=== PATIENT | male | born 1945 | race Caucasian/White ===

== ENCOUNTER → 2016-10-20 | Outpatient (CLI) | payer BC ==
[~2016-10-20] MED LIST: LEVO25TA PO; PSEU30TA20 PO; [UNRECOGNIZED DRUG - OTHER] PO
== END | disposition home or self-care (01) ==
LOC: C.LAB 15:17
PROVIDERS: ATTEND Physician Assistant
DX: E03.9 Hypothyroidism, unspecified (principal)

== ENCOUNTER → 2017-05-04 | Outpatient (CLI) | payer BC ==
[~2017-05-04] MED LIST changes: -PSEU30TA20 PO
== END | disposition home or self-care (01) ==
LOC: C.LAB 13:44
PROVIDERS: ATTEND Physician Assistant
DX: Z13.29 Encounter for screening for other suspected endocrine disorder (principal)

== ENCOUNTER 2023-12-18 17:33 | Inpatient (IN) ==
--- NOTE | 2023-12-18 18:07 | Emergency Department Note ---
Impression & Plan Generalized weakness, Confusion, Ambulatory dysfunction ED Provider Note HISTORY OF PRESENT ILLNESS: Patient is an 78-year-old male presenting with right rib and right flank pain. Patient reportedly fell 2 weeks ago. Patient has a history of dementia and seems to be a poor historian. reports that the last reported fall was 2 weeks ago. He reportedly has been complaining of some right chest wall pain and right flank pain over the last few days. No dysuria or hematuria. No fevers. No nausea or vomiting. Patient denies any significant cough or shortness of breath. Patient does not take any anticoagulation. Patient denies any fall and reports "it just hurts from all my pushing and pulling." ROS: as above PHYSICAL EXAM: Constitutional: Patient appears in no acute distress. HENT: Head: Normocephalic and atraumatic. Eyes: EOMI, PERRL Mouth/Throat: Mucous membranes moist. Neck: Trachea midline. Neck supple. Cardiovascular: RRR, No murmurs, rubs or gallops. Intact distal pulses. Pulmonary/Chest: No respiratory distress. Breath sounds clear and equal bilaterally. No wheezes or rales. Right lateral chest wall is tender to palpation. No evidence of ecchymosis or flail chest. Abdominal: Abdomen soft, no rebound or guarding. RUQ TTP Musculoskeletal: No edema, tenderness or deformity noted. Skin: Warm and dry. No rash, erythema, pallor or cyanosis Neurological: Alert. CN II-XII grossly intact, moving all extremities equally and fully. MDM: - Vitals signs stable - History obtained via patient and patient's , given his dementia. History as above. - Chronic conditions affecting care: HLD; hypothyroidism; vertigo - Differential diagnoses include, but are not limited to: ACS; pneumonia; rib fracture; pulmonary contusion; hemothorax; cholecystitis; liver laceration - Order placed for continuous cardiac monitoring. At this time, monitor showed rate of 86 bpm with normal sinus rhythm, per my interpretation. - External medical records reviewed. Primary care visit note dated 04/30/2023 was reviewed. Patient follows in their clinic for his routine follow-ups. - EKG interpreted by myself showed normal sinus rhythm. Rate 70 bpm. QT 376. No acute ischemic changes. - Laboratory workup interpreted by myself showed normal WBC; normal PT/INR; stable electrolytes; normal lactate; elevated total bilirubin (1.3); normal liver function tests; normal lipase; normal troponin - UA negative for infection - CT chest/abdomen/pelvis with IV contrast negative for acute pathology, per radiology. Radiology notes bilateral lower lobe atelectasis with trace right pleural effusion versus pleural thickening. Noted to have possible constipation. - CT head wo contrast negative for acute pathology, per radiology - Discussed results with patient and his at bedside. Patient is very confused and seems to be hallucinating. reports that this is apparently his baseline. She reports that he walks at home without any assistive devices but with a shuffling gait, which causes him to fall frequently. - Discussion was had with caseworker protective services about patient's case and need for admission - Hospitalist consulted for admission - Patient admitted to [facility] for further evaluation and management. ASSESSMENT AND PLAN: Diagnosis: Generalized weakness; confusion; ambulatory dysfunction Plan: admit Past Med/Surg History Problem List (Updated 12/18/23 @ 23:35 by Shelley Youssef MD) Ambulatory dysfunction (Acute) Confusion (Acute) Generalized weakness (Acute) Thrombocytopenia Chronic constipation Cognitive impairment Encounter for pre-operative examination Cataracts, bilateral (Chronic) Weight loss (Chronic) Impacted cerumen, left ear (Acute) Left ear pain (Acute) Memory loss (Chronic) Health care maintenance Urine incontinence (Chronic) Fatigue (Chronic) Iron deficiency anemia (Chronic) Constipation (Chronic) Anemia (Chronic) Dermatitis, nummular (Chronic) Hypercholesterolemia (Chronic) Palpitations (Chronic) Tubular adenoma of colon (Chronic) Hypothyroidism (Chronic) History of vertigo (Chronic) Medical History 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 sting Chronic constipation Closed fracture distal radius and ulna Cognitive impairment Degloving injury of left hand Dermatitis, nummular Diverticulitis History of vertigo Hypercholesterolemia Hypothyroidism Multiple open fractures of left hand bones Palpitations Thrombocytopenia Tubular adenoma of colon Surgical History Hx of hand surgery Family History Other Family history non-contributory Social History Smoking Status: Never smoker Preferred Language: Nepali marital status: Current Living Situation: Spouse current occupational status: retired Feels Safe at Home: Yes Allergies Allergies Allergy/AdvReac Type Severity Reaction Status Date / Time gluten Allergy Severe RASH Unverified 05/01/23 14:27 bee venom protein (honey bee) Allergy Intermediate SWELLING Unverified 05/01/23 14:27 caffeine Allergy Intermediate HEART Unverified 05/01/23 14:27 PALPITATION iodine Allergy Unknown Unknown Verified 05/01/23 14:27 magnesium sulfate Allergy Unknown Verified 05/01/23 14:27 latex Allergy Sneezing Verified 05/01/23 14:27 CONTRASTMEDIA Allergy Unknown Unknown Uncoded 05/01/23 14:27 POVIDONE IODINE (Generic Allergy Unknown Y Uncoded 05/01/23 14:27 Allergy) Home Meds Home Medications Medication Instructions Recorded Confirmed sennosides 15 mg tablet (Ex-Lax 15 mg PO QAM 09/23/18 05/01/23 (sennosides)) epinephrine 0.3 mg/0.3 mL 0.3 mg IM ONCE PRN anaphylaxis #1 03/22/19 05/01/23 injection, auto-injector ea pseudoephedrine HCl 30 mg tablet 60 mg PO BID 05/09/22 05/01/23 (Sudafed) Previous Rx's Medication Instructions Recorded levothyroxine 88 mcg tablet See Rx Instructions .Route 09/20/22 .COMPLEX #30 tabs polyethylene glycol 3350 17 17 g PO DAILY PRN constipation 01/19/23 gram/dose oral powder (Miralax) #119 grams Results & Data (ED) Vital Signs Vital Signs - 24 hr 12/18/23 17:43 12/18/23 17:45 12/18/23 17:49 Temperature 36.7 C 36.7 C Temperature Source Oral Oral Pulse Rate 73 74 Pulse Rate [Apical] 71 Pulse Rate from SpO2 Sensor Pulse Rhythm Pulse Strength Normal Respiratory Rate 19 21 Respiratory Effort / Characteristics Non-Labored Spontaneous Non-Labored Spontaneous Respiratory Depth Normal Normal Respiratory Pattern Regular Blood Pressure 146/90 H Blood Pressure [Right Arm] 146/90 H Blood Pressure Mean 108 Blood Pressure Mean [Right Arm] 108 Pulse Oximetry 96 95 Oxygen Delivery Method Room Air Room Air Sepsis Recent Fever Within 48 Hours No Sepsis New/Unexplained Change in Mental Status No Sepsis Action Taken by Nursing No Action Required 12/18/23 18:36 12/18/23 19:16 12/18/23 19:32 Temperature Temperature Source Pulse Rate 78 84 90 Pulse Rate [Apical] Pulse Rate from SpO2 Sensor 72 83 Pulse Rhythm Regular Pulse Strength Respiratory Rate 20 22 Respiratory Effort / Characteristics Respiratory Depth Respiratory Pattern Blood Pressure 140/77 136/36 L Blood Pressure [Right Arm] Blood Pressure Mean 98 69 Blood Pressure Mean [Right Arm] Pulse Oximetry 95 96 92 Oxygen Delivery Method Room Air Room Air Room Air Sepsis Recent Fever Within 48 Hours Sepsis New/Unexplained Change in Mental Status Sepsis Action Taken by Nursing 12/18/23 20:30 12/18/23 21:30 12/18/23 22:01 Temperature Temperature Source Pulse Rate 86 Pulse Rate [Apical] Pulse Rate from SpO2 Sensor 86 73 93 H Pulse Rhythm Pulse Strength Respiratory Rate 21 Respiratory Effort / Characteristics Respiratory Depth Respiratory Pattern Blood Pressure 161/81 H 137/68 154/98 H Blood Pressure [Right Arm] Blood Pressure Mean 107 91 116 Blood Pressure Mean [Right Arm] Pulse Oximetry 96 95 93 Oxygen Delivery Method Room Air Room Air Room Air Sepsis Recent Fever Within 48 Hours Sepsis New/Unexplained Change in Mental Status Sepsis Action Taken by Nursing 12/18/23 22:30 12/18/23 23:00 12/18/23 23:30 Temperature Temperature Source Pulse Rate 91 H 70 Pulse Rate [Apical] Pulse Rate from SpO2 Sensor 80 73 Pulse Rhythm Pulse Strength Respiratory Rate 20 19 Respiratory Effort / Characteristics Respiratory Depth Respiratory Pattern Blood Pressure 157/74 H 168/91 H Blood Pressure [Right Arm] Blood Pressure Mean 101 116 Blood Pressure Mean [Right Arm] Pulse Oximetry 93 96 96 Oxygen Delivery Method Room Air Sepsis Recent Fever Within 48 Hours Sepsis New/Unexplained Change in Mental Status Sepsis Action Taken by Nursing Laboratory Data 12/18/23 18:36 12/18/23 18:36 Lab Results 12/18/23 12/18/23 12/18/23 Range/Units 18:36 19:40 Unknown WBC 8.27 (4.8-10.8) K/ul RBC 4.11 L (4.70-6.10) M/uL Hgb 13.1 L (14.0-18.0) g/dl Hct 39.5 L (42.0-52.0) % MCV 96.1 (80.0-100.0) fL MCH 31.9 (25.0-34.0) pg MCHC 33.2 (32.0-36.0) g/dL RDW Std Deviation 46.0 (36.4-46.3) fL RDW Coeff of Jennifer 13.1 (11.5-14.5) % Plt Count 148 (130-400) K/uL MPV 11.0 (9.4-12.4) fL Immature Gran % (Auto) 0.1 % Neut % (Auto) 70.8 % Lymph % (Auto) 16.4 % [place] % (Auto) 11.7 % Eos % (Auto) 0.6 % Baso % (Auto) 0.4 % Neut # (Auto) 5.85 (1.40-6.50) K/uL Lymph # (Auto) 1.36 (1.20-3.40) K/uL [place] # (Auto) 0.97 H (0.11-0.59) K/uL Eos # (Auto) 0.05 (0.00-0.50) K/uL Baso # (Auto) 0.03 (0.00-0.20) K/uL Immature Gran # (Auto) 0.01 (0.01-0.20) K/uL PT 10.8 (9.0-12.0) Seconds INR 1.0 (0.9-1.1) Sodium 137 (136-145) mmol/L Potassium 4.2 (3.5-5.1) mmol/L Chloride 104 (98-107) mmol/L Carbon Dioxide 28 (21-32) mmol/L Anion Gap 5 (3-11) BUN 14 (6-23) mg/dl Creatinine 0.90 (0.6-1.4) mg/dl Est Cr Clr Drug Dosing 67.6 ml/min Est GFR ( Amer) 93.2 ml/min Est GFR (Non-Af Amer) 80.4 ml/min BUN/Creatinine Ratio 15.6 (10-20) Glucose 110 H (70-99(Fasting)) mg/dl Lactate 0.8 (0.4-2.0) mmol/L Calcium 9.1 (8.6-10.3) mg/dl Total Bilirubin 1.3 H (0.2-1.0) mg/dl AST 30 (13-39) U/L ALT 21 (7-52) U/L Alkaline Phosphatase 102 (34-104) U/L Troponin I High Sens 3.6 (0-20) pg/ml Total Protein 6.8 (6.0-8.3) gm/dl Albumin 3.8 (3.4-5.0) gm/dl Globulin 3.0 (2.5-4.0) gm/dl Albumin/Globulin Ratio 1.3 (0.9-2) Lipase 39 (11-82) U/L Urine Color Dark Yellow Urine Appearance Clear (Clear) Urine pH 6.0 (4.5-7.5) Ur Specific [place] 1.022 (1.000-1.030) Urine Protein Trace H (Negative) Urine Glucose (UA) Negative (Negative) Urine Ketones Negative (Negative) Urine Blood Negative (Negative) Urine Nitrite Negative (Negative) Urine Bilirubin Negative (Negative) Urine Urobilinogen Negative (Negative) Ur Leukocyte Esterase Negative (Negative) Urine WBC (Auto) 0-5 (0-5) /hpf Urine RBC (Auto) 0-2 (0-2) /hpf U Hyaline Cast (Auto) 0-2 (0-2) /lpf U Epithel Cells (Auto) 0-2 (0-2) /hpf Urine Bacteria (Auto) None Seen (None Seen) Administered Medications Discontinued Medications Diphenhydramine HCl (Diphenhydramine 50 Mg/Ml Vial) 25 mg IV ONE ONE Stop: 12/18/23 18:08 Last Admin: 12/18/23 18:36 Dose: 25 mg Documented By: JERROD Ioversol (Optiray 320 100ml) 89 ml IV ONCE ONE Stop: 12/18/23 20:15 Last Admin: 12/18/23 20:16 Dose: 89 ml Documented By: YESSICA Methylprednisolone (Methylprednisolone 125 Mg/2 Ml Vial) 40 mg IV NOW ONE Stop: 12/18/23 18:08 Last Admin: 12/18/23 18:37 Dose: 40 mg Documented By: JERROD Imaging Data Radiologist's Impression: Chest CT 12/18/23 18:07 Exam(s): CT CHEST With Contrast IV Amt: 89ml optiray 320 EXAM: CT Chest With Intravenous Contrast CLINICAL HISTORY: Reason for exam: R chest pain s/p fall. TECHNIQUE: Axial computed tomography images of the chest with intravenous contrast. CTDI is 34.09 mGy and DLP is 1490.73 mGy-cm. Automated exposure control was utilized for the study. A dose lowering technique was utilized adhering to the principles of ALARA. CONTRAST: Patient received 89ml optiray 320 of IV contrast COMPARISON: None. FINDINGS: Limitations: Exam is limited due to motion/breathing artifact. Lungs: Mild bilateral lower lobe atelectasis, right slightly more so compared to left. Remainder of the lung parenchyma is clear. No mass. Pleural space: Trace right-sided pleural effusion versus pleural thickening. No pneumothorax. Heart: Unremarkable. No cardiomegaly. No significant pericardial effusion. Normal cardiac size with coronary artery calcifications . Bones/joints: Diffuse osteopenia with multilevel degenerative disease of the spine and bilateral shoulders. Limited visualization of the ribs due to motion artifact with no distinct fracture seen. No dislocation. Soft tissues: Unremarkable. Vasculature: Mild atherosclerotic disease of aorta with no aneurysm or dissection. Normal enhancement of the pulmonary arteries for the phase of contrast injection. Lymph nodes: Unremarkable. No enlarged lymph nodes. Other findings: Visualized upper abdominal structures unremarkable. IMPRESSION: 1. Bilateral lower lobe atelectasis with trace right-sided pleural effusion versus pleural thickening. 2. No pneumothorax. 3. No distinct fracture or subluxation seen. Electronically signed by: July Nation MD 12/18/23 21:06 PM Abdomen/Pelvis CT 12/18/23 18:08 Exam(s): CT ABDOMEN + PELVIS With Contrast IV Amt: 89ml optiray 320 EXAM: CT Abdomen and Pelvis With Intravenous Contrast CLINICAL HISTORY: Reason for exam: R flank pain s/p fall. TECHNIQUE: Axial computed tomography images of the abdomen and pelvis with intravenous contrast. CTDI is 34.09 mGy and DLP is 1490.73 mGy-cm. Automated exposure control was utilized for the study. A dose lowering technique was utilized adhering to the principles of ALARA. CONTRAST: Patient received 89ml optiray 320 of IV contrast COMPARISON: 02/27/2020. FINDINGS: Lung bases: Bilateral lower lobe dependent atelectasis, right more than left with groundglass opacities, cannot exclude superimposed pneumonitis. ABDOMEN: Liver: Unremarkable. No mass. Gallbladder and bile ducts: Unremarkable. No calcified stones. No ductal dilation. Pancreas: Unremarkable. No mass. No ductal dilation. Spleen: Unremarkable. No splenomegaly. Adrenals: Unremarkable. No mass. Kidneys and ureters: Multiple low-attenuation structures within the right kidney, largest seen in the upper pole measuring 2.3 cm compatible with simple cysts. No further follow-up imaging recommended. Otherwise normal right kidney. Normal left kidney. Stomach and bowel: Increased fecal debris within the colon suggestive of constipation. No obstruction. No mucosal thickening. PELVIS: Appendix: No findings to suggest acute appendicitis. Bladder: Multiple stones/calculi along the posterior aspect of the urinary bladder, largest averaging approximately 6 mm. Reproductive: Severe prostate enlargement. ABDOMEN and PELVIS: Intraperitoneal space: Unremarkable. No free air. No significant fluid collection. Bones/joints: Diffuse osteopenia with degenerative disease of the spine, more severe to L5-S1 with vacuum phenomenon at this level. Mild degenerative disease of bilateral hips. Degenerative disease of bilateral SI joints. No acute fracture. No dislocation. Soft tissues: Unremarkable. Vasculature: Mild atherosclerotic disease of aorta with no aneurysm. Mild atherosclerotic disease of aorta with no aneurysm or dissection. Lymph nodes: Unremarkable. No enlarged lymph nodes. IMPRESSION: 1. Possible constipation. No bowel obstruction or focal inflammatory process or other gastrointestinal tract. 2. Prostate enlargement/hypertrophy with multiple urinary bladder calculi largest averaging approximately 6 mm. 3. Simple cysts within the right kidney as described above. Otherwise unremarkable abdominal viscera. Electronically signed by: July Nation MD 12/18/23 21:[address] 12/18/23 22:59 Exam(s): CT HEAD Without Contrast EXAM: CT Head Without Intravenous Contrast CLINICAL HISTORY: Reason for exam: confusion. TECHNIQUE: Axial computed tomography images of the head/brain without intravenous contrast. CTDI is 75.45 mGy and DLP is 1016.05 mGy-cm. Automated exposure control was utilized for the study. A dose lowering technique was utilized adhering to the principles of ALARA. COMPARISON: None. FINDINGS: Brain: Mild to moderate generalized brain atrophy. Decreased attenuation within the deep white matter suggestive of microangiopathic disease. No hemorrhage. Ventricles: Nonspecific bilateral ventriculomegaly. Bones/joints: Unremarkable. No acute fracture. Soft tissues: Unremarkable. Vasculature: Contrast identified within the vascular structures from previous IV contrast-enhanced examination limits the sensitivity for small amount of extra-axial hemorrhage. Sinuses: Unremarkable as visualized. No acute sinusitis. Mastoid air cells: Unremarkable as visualized. No mastoid effusion. IMPRESSION: 1. Chronic changes as described with no distinct intracranial hemorrhage within the limits of the exam described. 2. No intracranial space-occupying lesion. Electronically signed by: July Nation MD 12/19/23 00:08 AM Discharge Plan Visit Data Chief Complaint: Back Injury/Pain ED Provider: Shelley Youssef Discharge Problem: Generalized weakness, Confusion, Ambulatory dysfunction Forms Stand Alone Forms: [facility] [employer] Prescriptions Prescriptions: No Action levothyroxine 88 mcg tablet See Rx Instructions .ROUTE .COMPLEX Qty: 30 0RF Hold Instructions: PATIENT NOT TAKING - REFUSES Dose Instruction: take 1 tablet by mouth once daily Rx Instructions: take 1 tablet by mouth once daily epinephrine 0.3 mg/0.3 mL auto-injector 0.3 mg IM ONCE PRN (Reason: anaphylaxis) Qty: 1 pseudoephedrine HCl [Sudafed] 30 mg tablet 60 mg PO BID polyethylene glycol 3350 [Miralax] 17 gram/dose powder 17 g PO DAILY PRN (Reason: constipation) Qty: 119 0RF Ex-Lax (sennosides) 15 mg Tablet 15 mg PO QAM Referrals Referrals: Aurea Kaye MD [Primary Care Provider] -
[2023-12-18] MEDS: diphenhydrAMINE 50 MG/ML VIAL IV ONE (18:36)
[2023-12-18] MEDS: methylPREDNISolone 125 MG/2 ML VIAL IV ONE (18:37)
[2023-12-18 18:57] LABS: Appearance Urine Clear (Clear); Bacteria Urine Automated None Seen (None Seen); Bilirubin Urine Negative (Negative); Blood Urine Negative (Negative); Cast Urine Automated 0-2 /lpf (0-2); Color Urine Dark Yellow; Epithelial Cell Urine Auto 0-2 /hpf (0-2); Glucose Urine UA Negative (Negative); Ketones Urine Negative (Negative); Leukocyte Esterase Urine Negative (Negative); Nitrite Urine Negative (Negative); Protein Urine Trace (Negative); RBC Urine Automated 0-2 /hpf (0-2); Specific Gravity Urine 1.022 (1.000-1.030); Urobilinogen Urine Negative (Negative); WBC Urine Automated 0-5 /hpf (0-5)
[2023-12-18 19:01] LABS: Basophils # (auto) 0.03 K/uL (0.00-0.20); Basophils % (auto) 0.4 %; Eosinophils # (auto) 0.05 K/uL (0.00-0.50); Eosinophils % (auto) 0.6 %; Hematocrit (blood only) 39.5 % (42.0-52.0); Hemoglobin 13.1 g/dl (14.0-18.0); Immature Granulocytes # (auto) 0.01 K/uL (0.01-0.20); Immature Granulocytes % (auto) 0.1 %; Lymphocytes # (auto) 1.36 K/uL (1.20-3.40); Lymphocytes % (auto) 16.4 %; Mean Corpuscular Hemoglobin 31.9 pg (25.0-34.0); Mean Corpuscular Hgb Conc 33.2 g/dL (32.0-36.0); Mean Corpuscular Volume 96.1 fL (80.0-100.0); Monocytes # (auto) 0.97 K/uL (0.11-0.59); Monocytes % (auto) 11.7 %; Neutrophils # (auto) 5.85 K/uL (1.40-6.50); Neutrophils % (auto) 70.8 %; Platelet Count 148 K/uL (130-400); RDW Coefficient of Variation 13.1 % (11.5-14.5); Red Blood Count 4.11 M/uL (4.70-6.10); White Blood Count 8.27 K/ul (4.8-10.8)
[2023-12-18 19:20] LABS: Albumin Globulin Ratio 1.3 (0.9-2); Albumin Level 3.8 gm/dl (3.4-5.0); BUN Creatinine Ratio 15.6 (10-20); Bilirubin,Total 1.3 mg/dl (0.2-1.0); Calcium 9.1 mg/dl (8.6-10.3); Creatinine Clr Calc Pharmacy 67.6 ml/min; Est GFR (African American) 93.2 ml/min; Est GFR (Non-African American) 80.4 ml/min; Potassium 4.2 mmol/L (3.5-5.1); Total Protein 6.8 gm/dl (6.0-8.3)
[2023-12-18 19:27] LABS: Troponin I High Sensitivity 3.6 pg/ml (0-20)
[2023-12-18 19:28] LABS: Prothrombin Time 10.8 Seconds (9.0-12.0)
[2023-12-18] MEDS: OPTIRAY 320 100ml IV ONE (20:16)
--- NOTE | 2023-12-18 21:07 | CT Scan Report ---
Exam(s): CT CHEST With Contrast IV Amt: 89ml optiray 320 EXAM: CT Chest With Intravenous Contrast CLINICAL HISTORY: Reason for exam: R chest pain s/p fall. TECHNIQUE: Axial computed tomography images of the chest with intravenous contrast. CTDI is 34.09 mGy and DLP is 1490.73 mGy-cm. Automated exposure control was utilized for the study. A dose lowering technique was utilized adhering to the principles of ALARA. CONTRAST: Patient received 89ml optiray 320 of IV contrast COMPARISON: None. FINDINGS: Limitations: Exam is limited due to motion/breathing artifact. Lungs: Mild bilateral lower lobe atelectasis, right slightly more so compared to left. Remainder of the lung parenchyma is clear. No mass. Pleural space: Trace right-sided pleural effusion versus pleural thickening. No pneumothorax. Heart: Unremarkable. No cardiomegaly. No significant pericardial effusion. Normal cardiac size with coronary artery calcifications . Bones/joints: Diffuse osteopenia with multilevel degenerative disease of the spine and bilateral shoulders. Limited visualization of the ribs due to motion artifact with no distinct fracture seen. No dislocation. Soft tissues: Unremarkable. Vasculature: Mild atherosclerotic disease of aorta with no aneurysm or dissection. Normal enhancement of the pulmonary arteries for the phase of contrast injection. Lymph nodes: Unremarkable. No enlarged lymph nodes. Other findings: Visualized upper abdominal structures unremarkable. IMPRESSION: 1. Bilateral lower lobe atelectasis with trace right-sided pleural effusion versus pleural thickening. 2. No pneumothorax. 3. No distinct fracture or subluxation seen. Electronically signed by: July Nation MD 12/18/23 21:06 PM
--- NOTE | 2023-12-18 21:11 | CT Scan Report ---
Exam(s): CT ABDOMEN + PELVIS With Contrast IV Amt: 89ml optiray 320 EXAM: CT Abdomen and Pelvis With Intravenous Contrast CLINICAL HISTORY: Reason for exam: R flank pain s/p fall. TECHNIQUE: Axial computed tomography images of the abdomen and pelvis with intravenous contrast. CTDI is 34.09 mGy and DLP is 1490.73 mGy-cm. Automated exposure control was utilized for the study. A dose lowering technique was utilized adhering to the principles of ALARA. CONTRAST: Patient received 89ml optiray 320 of IV contrast COMPARISON: 02/27/2020. FINDINGS: Lung bases: Bilateral lower lobe dependent atelectasis, right more than left with groundglass opacities, cannot exclude superimposed pneumonitis. ABDOMEN: Liver: Unremarkable. No mass. Gallbladder and bile ducts: Unremarkable. No calcified stones. No ductal dilation. Pancreas: Unremarkable. No mass. No ductal dilation. Spleen: Unremarkable. No splenomegaly. Adrenals: Unremarkable. No mass. Kidneys and ureters: Multiple low-attenuation structures within the right kidney, largest seen in the upper pole measuring 2.3 cm compatible with simple cysts. No further follow-up imaging recommended. Otherwise normal right kidney. Normal left kidney. Stomach and bowel: Increased fecal debris within the colon suggestive of constipation. No obstruction. No mucosal thickening. PELVIS: Appendix: No findings to suggest acute appendicitis. Bladder: Multiple stones/calculi along the posterior aspect of the urinary bladder, largest averaging approximately 6 mm. Reproductive: Severe prostate enlargement. ABDOMEN and PELVIS: Intraperitoneal space: Unremarkable. No free air. No significant fluid collection. Bones/joints: Diffuse osteopenia with degenerative disease of the spine, more severe to L5-S1 with vacuum phenomenon at this level. Mild degenerative disease of bilateral hips. Degenerative disease of bilateral SI joints. No acute fracture. No dislocation. Soft tissues: Unremarkable. Vasculature: Mild atherosclerotic disease of aorta with no aneurysm. Mild atherosclerotic disease of aorta with no aneurysm or dissection. Lymph nodes: Unremarkable. No enlarged lymph nodes. IMPRESSION: 1. Possible constipation. No bowel obstruction or focal inflammatory process or other gastrointestinal tract. 2. Prostate enlargement/hypertrophy with multiple urinary bladder calculi largest averaging approximately 6 mm. 3. Simple cysts within the right kidney as described above. Otherwise unremarkable abdominal viscera. Electronically signed by: July Nation MD 12/18/23 21:10 PM
--- NOTE | 2023-12-18 23:45 | History & Physical Report ---
Date of Service December 18, 2023 Assessment & Plan (1) Confusion: Plan: 78yo male with dementia presenting with worsening confusion and behavioral disturbance over the last 2 weeks. Acute worsening in the ER. Suspect progression of dementia, possible delirium currently. Etiology unclear. Labs are largely unremarkable, no evidence of infection -Admit to medical -Check ammonia, B12 and Folate -Frequent orientation, maintenance of sleep/wake cycle where able -One to one observation as needed -PT/OT evaluation -Case management evaluation Family reports that their goal discharge plan is that patient returns home with some home nursing and health aides (2) Constipation: Plan: Family notes chronic constipation -Colace and Miralax PRN Plan Vertigo - chronic -Continue Pseudoephedrine BID History of Present Illness Chief Complaint: confusion Primary Care Provider: Aurea Kaye MD Hoang Saavedra is an 78yo male with history of Dementia presenting with confusion. Patient is uncertain why he is here in the hospital. He has no acute complaints. He is quite confused during our encounter - reports that he has to "deal with the [employer] team that uses different weights and shovels" Additional information obtained from patient's and son (Citlali Saavedra - [phone]). and son report that patient has had a steady decline in cognitive function and memory over the last year. 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 He has wandered out of the home in the past as well. The family has placed bells on the doors to notify them if he leaves the house. Patient reported falling during the night two weeks ago but was able to get up afterwards - no injury. is unaware of any other falls since then. His reports some increased confusion over the last two weeks. He has been urinating throughout the home - in the trash cans, on the floor, etc. He has also been refusing to wear underwear and pants. Today patient was sitting in the garage on a lawn chair without pants or underwear on. He then started to wander around the yard and wouldn't listen to his . He was complaining about a pain in his side and wouldn't get out of his chair. EMS was called and he was brought to the ER. notes some acutely worsening confusion in the ER. He was pulling at his IV lines and wasn't answering questions appropriately. In the ER he is afebrile, HD stable Confusion ER Course: Haldol 2.5mg IV Allergies Allergy/AdvReac Type Severity Reaction Status Date / Time gluten Allergy Severe RASH Unverified 05/01/23 14:27 bee venom protein (honey bee) Allergy Intermediate SWELLING Unverified 05/01/23 14:27 caffeine Allergy Intermediate HEART Unverified 05/01/23 14:27 PALPITATION iodine Allergy Unknown Unknown Verified 05/01/23 14:27 magnesium sulfate Allergy Unknown Verified 05/01/23 14:27 latex Allergy Sneezing Verified 05/01/23 14:27 CONTRASTMEDIA Allergy Unknown Unknown Uncoded 05/01/23 14:27 POVIDONE IODINE (Generic Allergy Unknown Y Uncoded 05/01/23 14:27 Allergy) Home Medications Medication Instructions Recorded Confirmed Type sennosides 15 mg tablet (Ex-Lax 15 mg PO QAM 09/23/18 05/01/23 History (sennosides)) epinephrine 0.3 mg/0.3 mL 0.3 mg IM ONCE PRN anaphylaxis #1 03/22/19 05/01/23 History injection, auto-injector ea pseudoephedrine HCl 30 mg tablet 60 mg PO BID 05/09/22 05/01/23 History (Sudafed) levothyroxine 88 mcg tablet See Rx Instructions .Route 09/20/22 05/01/23 Rx .COMPLEX #30 tabs polyethylene glycol 3350 17 17 g PO DAILY PRN constipation 01/19/23 05/01/23 Rx gram/dose oral powder (Miralax) #119 grams Past Med/Surg History Problem List Ambulatory dysfunction (Acute) Confusion (Acute) Generalized weakness (Acute) Thrombocytopenia Chronic constipation Cognitive impairment Encounter for pre-operative examination Cataracts, bilateral (Chronic) Weight loss (Chronic) Impacted cerumen, left ear (Acute) Left ear pain (Acute) Memory loss (Chronic) Health care maintenance Urine incontinence (Chronic) Fatigue (Chronic) Iron deficiency anemia (Chronic) Constipation (Chronic) Anemia (Chronic) Dermatitis, nummular (Chronic) Hypercholesterolemia (Chronic) Palpitations (Chronic) Tubular adenoma of colon (Chronic) Hypothyroidism (Chronic) History of vertigo (Chronic) Medical History 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 sting Degloving injury of left hand Multiple open fractures of left hand bones Closed fracture distal radius and ulna Surgical History Hx of hand surgery 2016, left hand Family History Other Family history non-contributory Social History Smoking Status: Unknown if ever smoked Second Hand Exposure: No (unknown, unable to answer); Do You Dip or Chew Tobacco: No (unknown, unable to answer); Tobacco Cessation Education Requested by Patient: No Hx Alcohol Use: No (unknown, unable to answer) Hx Substance Use: No (unknown, unable to answer) Preferred Language: Portuguese Communication Ability: Effective Supervisor Print Line Required: No Beliefs That Will Affect Care: None marital status: Current Living Situation: Spouse current occupational status: retired Other Information That Helps Us Care for You: No (unknown, unable to answer) Feels Safe at Home: Yes Assistive Devices Comment: unknown, unable to answer Review of Systems Review of Systems: All systems reviewed & are unremarkable except as noted in HPI & below Physical Exam Physical Exam: General: frail elderly male patient, oriented to self Skin: warm, dry, intact, no rashes or lesions HEENT: NC/AT, PERRL, EOMI, anicteric sclera, conjunctiva without injection, external ear normal to inspection and nontender, nares patent, moist mucus membranes, dentition intact, no oropharyngeal lesions, neck supple, trachea midline, no LAD, no thyromegaly, no JVD Heart: +S1/S2, regular, no m/r/g Lungs: equal air entry bilaterally, no rales/rhonchi/wheezes Abd: +BS, soft, NT/ND, no masses/organomegaly/ascites Ext: warm, 2+ pulses in UE/LE bilaterally, no clubbing/cyanosis or edema, farm ing accident involving left hand Neuro: confused, answers questions, inattentive, oriented to self Results & Data Results & Data Vital Signs (Past 12 Hours) Vital Signs Temp Pulse Pulse Resp BP BP Pulse Ox 12/18/23 22:30 157/74 H 93 12/18/23 22:01 154/98 H 93 12/18/23 21:30 137/68 95 12/18/23 20:30 86 21 161/81 H 96 12/18/23 19:32 90 22 136/36 L 92 12/18/23 19:16 84 20 140/77 96 12/18/23 18:36 78 95 12/18/23 17:49 36.7 C 71 21 146/90 H 95 12/18/23 17:45 74 12/18/23 17:43 36.7 C 73 19 146/90 H 96 O2 Del Method 12/18/23 22:30 Room Air 12/18/23 22:01 Room Air 12/18/23 21:30 Room Air 12/18/23 20:30 Room Air 12/18/23 19:32 Room Air 12/18/23 19:16 Room Air 12/18/23 18:36 Room Air 12/18/23 17:49 Room Air 12/18/23 17:45 12/18/23 17:43 Room Air Laboratory Results Laboratory Results WBC 8.27 K/ul (4.8-10.8) 12/18/23 18:36 RBC 4.11 M/uL (4.70-6.10) L 12/18/23 18:36 Hgb 13.1 g/dl (14.0-18.0) L 12/18/23 18:36 Hct 39.5 % (42.0-52.0) L 12/18/23 18:36 MCV 96.1 fL (80.0-100.0) 12/18/23 18:36 MCH 31.9 pg (25.0-34.0) 12/18/23 18:36 MCHC 33.2 g/dL (32.0-36.0) 12/18/23 18:36 RDW Std Deviation 46.0 fL (36.4-46.3) 12/18/23 18:36 RDW Coeff of Jennifer 13.1 % (11.5-14.5) 12/18/23 18:36 Plt Count 148 K/uL (130-400) 12/18/23 18:36 MPV 11.0 fL (9.4-12.4) 12/18/23 18:36 Immature Gran % (Auto) 0.1 % 12/18/23 18:36 Neut % (Auto) 70.8 % 12/18/23 18:36 Lymph % (Auto) 16.4 % 12/18/23 18:36 [place] % (Auto) 11.7 % 12/18/23 18:36 Eos % (Auto) 0.6 % 12/18/23 18:36 Baso % (Auto) 0.4 % 12/18/23 18:36 Neut # (Auto) 5.85 K/uL (1.40-6.50) 12/18/23 18:36 Lymph # (Auto) 1.36 K/uL (1.20-3.40) 12/18/23 18:36 [place] # (Auto) 0.97 K/uL (0.11-0.59) H 12/18/23 18:36 Eos # (Auto) 0.05 K/uL (0.00-0.50) 12/18/23 18:36 Baso # (Auto) 0.03 K/uL (0.00-0.20) 12/18/23 18:36 Immature Gran # (Auto) 0.01 K/uL (0.01-0.20) 12/18/23 18:36 PT 10.8 Seconds (9.0-12.0) 12/18/23 18:36 INR 1.0 (0.9-1.1) 12/18/23 18:36 Sodium 137 mmol/L (136-145) 12/18/23 18:36 Potassium 4.2 mmol/L (3.5-5.1) 12/18/23 18:36 Chloride 104 mmol/L (98-107) 12/18/23 18:36 Carbon Dioxide 28 mmol/L (21-32) 12/18/23 18:36 Anion Gap 5 (3-11) 12/18/23 18:36 BUN 14 mg/dl (6-23) 12/18/23 18:36 Creatinine 0.90 mg/dl (0.6-1.4) 12/18/23 18:36 Est Cr Clr Drug Dosing 67.6 ml/min 12/18/23 18:36 Est GFR ( Amer) 93.2 ml/min 12/18/23 18:36 Est GFR (Non-Af Amer) 80.4 ml/min 12/18/23 18:36 BUN/Creatinine Ratio 15.6 (10-20) 12/18/23 18:36 Glucose 110 mg/dl (70-99(Fasting)) H 12/18/23 18:36 Lactate 0.8 mmol/L (0.4-2.0) 12/18/23 19:40 Calcium 9.1 mg/dl (8.6-10.3) 12/18/23 18:36 Phosphorus 2.9 mg/dl (2.5-4.9) 12/18/23 18:36 Magnesium 2.1 mg/dl (1.7-2.4) 12/18/23 18:36 Total Bilirubin 1.3 mg/dl (0.2-1.0) H 12/18/23 18:36 AST 30 U/L (13-39) 12/18/23 18:36 ALT 21 U/L (7-52) 12/18/23 18:36 Alkaline Phosphatase 102 U/L (34-104) 12/18/23 18:36 Troponin I High Sens 3.6 pg/ml (0-20) 12/18/23 18:36 Total Protein 6.8 gm/dl (6.0-8.3) 12/18/23 18:36 Albumin 3.8 gm/dl (3.4-5.0) 12/18/23 18:36 Globulin 3.0 gm/dl (2.5-4.0) 12/18/23 18:36 Albumin/Globulin Ratio 1.3 (0.9-2) 12/18/23 18:36 Lipase 39 U/L (11-82) 12/18/23 18:36 Urine Color Dark Yellow 12/18/23 Unknown Urine Appearance Clear (Clear) 12/18/23 Unknown Urine pH 6.0 (4.5-7.5) 12/18/23 Unknown Ur Specific [place] 1.022 (1.000-1.030) 12/18/23 Unknown Urine Protein Trace (Negative) H 12/18/23 Unknown Urine Glucose (UA) Negative (Negative) 12/18/23 Unknown Urine Ketones Negative (Negative) 12/18/23 Unknown Urine Blood Negative (Negative) 12/18/23 Unknown Urine Nitrite Negative (Negative) 12/18/23 Unknown Urine Bilirubin Negative (Negative) 12/18/23 Unknown Urine Urobilinogen Negative (Negative) 12/18/23 Unknown Ur Leukocyte Esterase Negative (Negative) 12/18/23 Unknown Urine WBC (Auto) 0-5 /hpf (0-5) 12/18/23 Unknown Urine RBC (Auto) 0-2 /hpf (0-2) 12/18/23 Unknown U Hyaline Cast (Auto) 0-2 /lpf (0-2) 12/18/23 Unknown U Epithel Cells (Auto) 0-2 /hpf (0-2) 12/18/23 Unknown Urine Bacteria (Auto) None Seen (None Seen) 12/18/[address] 12/18/23 18:07 Exam(s): CT CHEST With Contrast IV Amt: 89ml optiray 320 EXAM: CT Chest With Intravenous Contrast CLINICAL HISTORY: Reason for exam: R chest pain s/p fall. TECHNIQUE: Axial computed tomography images of the chest with intravenous contrast. CTDI is 34.09 mGy and DLP is 1490.73 mGy-cm. Automated exposure control was utilized for the study. A dose lowering technique was utilized adhering to the principles of ALARA. CONTRAST: Patient received 89ml optiray 320 of IV contrast COMPARISON: None. FINDINGS: Limitations: Exam is limited due to motion/breathing artifact. Lungs: Mild bilateral lower lobe atelectasis, right slightly more so compared to left. Remainder of the lung parenchyma is clear. No mass. Pleural space: Trace right-sided pleural effusion versus pleural thickening. No pneumothorax. Heart: Unremarkable. No cardiomegaly. No significant pericardial effusion. Normal cardiac size with coronary artery calcifications . Bones/joints: Diffuse osteopenia with multilevel degenerative disease of the spine and bilateral shoulders. Limited visualization of the ribs due to motion artifact with no distinct fracture seen. No dislocation. Soft tissues: Unremarkable. Vasculature: Mild atherosclerotic disease of aorta with no aneurysm or dissection. Normal enhancement of the pulmonary arteries for the phase of contrast injection. Lymph nodes: Unremarkable. No enlarged lymph nodes. Other findings: Visualized upper abdominal structures unremarkable. IMPRESSION: 1. Bilateral lower lobe atelectasis with trace right-sided pleural effusion versus pleural thickening. 2. No pneumothorax. 3. No distinct fracture or subluxation seen. Electronically signed by: July Nation MD 12/18/23 21:06 PM Abdomen/Pelvis CT 12/18/23 18:08 Exam(s): CT ABDOMEN + PELVIS With Contrast IV Amt: 89ml optiray 320 EXAM: CT Abdomen and Pelvis With Intravenous Contrast CLINICAL HISTORY: Reason for exam: R flank pain s/p fall. TECHNIQUE: Axial computed tomography images of the abdomen and pelvis with intravenous contrast. CTDI is 34.09 mGy and DLP is 1490.73 mGy-cm. Automated exposure control was utilized for the study. A dose lowering technique was utilized adhering to the principles of ALARA. CONTRAST: Patient received 89ml optiray 320 of IV contrast COMPARISON: 02/27/2020. FINDINGS: Lung bases: Bilateral lower lobe dependent atelectasis, right more than left with groundglass opacities, cannot exclude superimposed pneumonitis. ABDOMEN: Liver: Unremarkable. No mass. Gallbladder and bile ducts: Unremarkable. No calcified stones. No ductal dilation. Pancreas: Unremarkable. No mass. No ductal dilation. Spleen: Unremarkable. No splenomegaly. Adrenals: Unremarkable. No mass. Kidneys and ureters: Multiple low-attenuation structures within the right kidney, largest seen in the upper pole measuring 2.3 cm compatible with simple cysts. No further follow-up imaging recommended. Otherwise normal right kidney. Normal left kidney. Stomach and bowel: Increased fecal debris within the colon suggestive of constipation. No obstruction. No mucosal thickening. PELVIS: Appendix: No findings to suggest acute appendicitis. Bladder: Multiple stones/calculi along the posterior aspect of the urinary bladder, largest averaging approximately 6 mm. Reproductive: Severe prostate enlargement. ABDOMEN and PELVIS: Intraperitoneal space: Unremarkable. No free air. No significant fluid collection. Bones/joints: Diffuse osteopenia with degenerative disease of the spine, more severe to L5-S1 with vacuum phenomenon at this level. Mild degenerative disease of bilateral hips. Degenerative disease of bilateral SI joints. No acute fracture. No dislocation. Soft tissues: Unremarkable. Vasculature: Mild atherosclerotic disease of aorta with no aneurysm. Mild atherosclerotic disease of aorta with no aneurysm or dissection. Lymph nodes: Unremarkable. No enlarged lymph nodes. IMPRESSION: 1. Possible constipation. No bowel obstruction or focal inflammatory process or other gastrointestinal tract. 2. Prostate enlargement/hypertrophy with multiple urinary bladder calculi largest averaging approximately 6 mm. 3. Simple cysts within the right kidney as described above. Otherwise unremarkable abdominal viscera. Electronically signed by: Juyl Nation MD 12/18/23 21:[address] 12/18/23 22:59 Exam(s): CT HEAD Without Contrast EXAM: CT Head Without Intravenous Contrast CLINICAL HISTORY: Reason for exam: confusion. TECHNIQUE: Axial computed tomography images of the head/brain without intravenous contrast. CTDI is 75.45 mGy and DLP is 1016.05 mGy-cm. Automated exposure control was utilized for the study. A dose lowering technique was utilized adhering to the principles of ALARA. COMPARISON: None. FINDINGS: Brain: Mild to moderate generalized brain atrophy. Decreased attenuation within the deep white matter suggestive of microangiopathic disease. No hemorrhage. Ventricles: Nonspecific bilateral ventriculomegaly. Bones/joints: Unremarkable. No acute fracture. Soft tissues: Unremarkable. Vasculature: Contrast identified within the vascular structures from previous IV contrast-enhanced examination limits the sensitivity for small amount of extra-axial hemorrhage. Sinuses: Unremarkable as visualized. No acute sinusitis. Mastoid air cells: Unremarkable as visualized. No mastoid effusion. IMPRESSION: 1. Chronic changes as described with no distinct intracranial hemorrhage within the limits of the exam described. 2. No intracranial space-occupying lesion. Electronically signed by: July Nation MD 12/19/23 00:08 AM Code Status & VTE Plan VTE Prophylaxis Plan VTE Prophylaxis will be ordered: Yes PG Care Time/CCT Total # of Minutes Spent Total Time Spent with Patient: Total time spent is greater than 50% in coordination of care (as documented) at patient's floor/unit and/or counseling patient: Coding Level of Care Code 00732 INT INP/OBS CARE 2/55MIN Diagnoses Confusion R41.0 Constipation K59.00
--- NOTE | 2023-12-19 00:09 | CT Scan Report ---
Exam(s): CT HEAD Without Contrast EXAM: CT Head Without Intravenous Contrast CLINICAL HISTORY: Reason for exam: confusion. TECHNIQUE: Axial computed tomography images of the head/brain without intravenous contrast. CTDI is 75.45 mGy and DLP is 1016.05 mGy-cm. Automated exposure control was utilized for the study. A dose lowering technique was utilized adhering to the principles of ALARA. COMPARISON: None. FINDINGS: Brain: Mild to moderate generalized brain atrophy. Decreased attenuation within the deep white matter suggestive of microangiopathic disease. No hemorrhage. Ventricles: Nonspecific bilateral ventriculomegaly. Bones/joints: Unremarkable. No acute fracture. Soft tissues: Unremarkable. Vasculature: Contrast identified within the vascular structures from previous IV contrast-enhanced examination limits the sensitivity for small amount of extra-axial hemorrhage. Sinuses: Unremarkable as visualized. No acute sinusitis. Mastoid air cells: Unremarkable as visualized. No mastoid effusion. IMPRESSION: 1. Chronic changes as described with no distinct intracranial hemorrhage within the limits of the exam described. 2. No intracranial space-occupying lesion. Electronically signed by: July Nation MD 12/19/23 00:08 AM
[2023-12-19] MEDS: HALOPERIDOL LACTATE 5 MG/ML 1 ML VIAL IV STA (00:37)
[2023-12-19] MEDS ORDERED: DOCUSATE SODIUM 100 MG CAP PO PRN (02:07)
[2023-12-19] MEDS ORDERED: ONDANSETRON INJ 2 MG/ML 2 ML VIAL IV PRN (02:07)
[2023-12-19] MEDS ORDERED: POLYETHYLENE (MIRALAX) 17 GM PACK PO PRN (02:07)
[2023-12-19 02:27] LABS: Magnesium 2.1 mg/dl (1.7-2.4); Phosphorus 2.9 mg/dl (2.5-4.9)
[2023-12-19 06:23] LABS: Hematocrit (blood only) 38.1 % (42.0-52.0); Hemoglobin 12.5 g/dl (14.0-18.0); Mean Corpuscular Hgb Conc 32.8 g/dL (32.0-36.0); Mean Corpuscular Volume 94.5 fL (80.0-100.0); Mean Platelet Volume 10.5 fL (9.4-12.4); Platelet Count 144 K/uL (130-400); RDW Coefficient of Variation 12.7 % (11.5-14.5); RDW Standard Deviation 44.1 fL (36.4-46.3); Red Blood Count 4.03 M/uL (4.70-6.10); White Blood Count 8.78 K/ul (4.8-10.8)
[2023-12-19 06:38] LABS: Albumin Level 3.6 gm/dl (3.4-5.0); BUN Creatinine Ratio 14.3 (10-20); Bilirubin Direct 0.2 mg/dl (0-0.2); Calcium 9.1 mg/dl (8.6-10.3); Est GFR (African American) 91.9 ml/min; Est GFR (Non-African American) 79.3 ml/min; Potassium 4.2 mmol/L (3.5-5.1); Total Protein 6.5 gm/dl (6.0-8.3)
[2023-12-19 06:54] LABS: Thyroid Stimulating Hormone 7.25 uIu/ml (0.300-4.500)
[2023-12-19 07:09] LABS: Folate (Folic Acid),Ser orPlas 9.43 ng/ml (>5.38)
[2023-12-19 07:30] LABS: T4 Free Thyroxine 0.64 ng/dl (0.61-1.60)
[2023-12-19] MEDS: ENOXAPARIN INJ 30 MG/0.3 ML SYR SQ SCH (08:26)
[2023-12-19] MEDS: PSEUDOEPHEDRINE HCL 30 MG TAB PO SCH (08:26)
[2023-12-19 11:05] LABS: Influenza A virus by PCR Negative (Neg); Influenza B virus by PCR Negative (Neg); RSV by PCR Negative (Neg); SARS CoV2 RNA(COVID-19) Ceph NEGATIVE (Negative)
[2023-12-19 14:33] LABS: Basophils # (auto) 0.01 K/uL (0.00-0.20); Basophils % (auto) 0.1 %; Eosinophils # (auto) 0.02 K/uL (0.00-0.50); Eosinophils % (auto) 0.2 %; Immature Granulocytes # (auto) 0.04 K/uL (0.01-0.20); Immature Granulocytes % (auto) 0.5 %; Lymphocytes # (auto) 0.67 K/uL (1.20-3.40); Lymphocytes % (auto) 7.8 %; Monocytes # (auto) 0.43 K/uL (0.11-0.59); Neutrophils # (auto) 7.38 K/uL (1.40-6.50); Neutrophils % (auto) 86.4 %
[2023-12-19 15:15] LABS: RBC Morphology Unremarkable
--- NOTE | 2023-12-19 15:46 | Electrocardiogram Report ---
Test Reason : Blood Pressure : / mmHG Vent. Rate : 073 BPM Atrial Rate : 073 BPM P-R Int : 158 ms QRS Dur : 080 ms QT Int : 364 ms P-R-T Axes : 066 050 076 degrees QTc Int : 401 ms Normal sinus rhythm with sinus arrhythmia Normal ECG When compared with ECG of 18-JAN-2016 17:21, Premature supraventricular complexes are no longer Present QT has shortened Confirmed by Hiro Todd ([id number]) on 12/19/2023 3:46:34 PM Referred By: REFERRED SELF Confirmed By:Hiro Todd
--- NOTE | 2023-12-19 15:55 | Electrocardiogram Report ---
Test Reason : Blood Pressure : / mmHG Vent. Rate : 070 BPM Atrial Rate : 070 BPM P-R Int : 166 ms QRS Dur : 082 ms QT Int : 376 ms P-R-T Axes : 066 053 077 degrees QTc Int : 406 ms Sinus rhythm with frequent Premature atrial complexes Otherwise normal ECG When compared with ECG of 18-DEC-2023 17:42, (unconfirmed) No significant change was found Confirmed by Hiro Todd ([id number]) on 12/19/2023 3:55:08 PM Referred By: REFERRED SELF Confirmed By:Hiro Todd
--- NOTE | 2023-12-19 17:56 | Hospitalist Progress Note ---
Date of Service December 19, 2023 Assessment & Plan (1) Acute encephalopathy: Plan: etiology uncertain extensive w/u to date thus far negative including CT chest/abd/pelvis (constipation only) COVID/flu/RSV neg added on lyme screen, babesia/anaplasmosis smears -- all 3 negative plan to obtain MRI brain - r/o subacute CVA repeat labs including CBC and CRP in am certainly severe constipation can sometimes cause altered MS in seniors especially individuals with dementia at baseline thus will step up his constipation agents (2) Thrombocytopenia: Plan: minimally depressed in the 140s significance uncertain simply repeat CBC in am (3) Chronic constipation: Plan: dulcolax daily while here (PO) miralax (if he will take it) daily if he won't take miralax consider small dose of lactulose daily (4) Hypothyroidism: Plan: TSH mildly elevated if he has been getting his synthroid regularly will increase dose to 100mcg daily will inquire with family (5) Dementia: Plan: advanced Check a B1 level while here B12 level wnl Plan DVT proph - lovenox daily PT, OT evals no discharge today -- not fully back to baseline mentioned he has crying spells and is emotionally labile has no interest in most activities at home consider treating for possible depression (remeron??) Admission and Anticipated Discharge Date Admission Date: December 18, 2023 Subjective patient lying in bed comfortably at bedside she reports he is "more like himself" today he has known dementia & memory loss but had had increased confusion & agitation - both of the latter are improved during the visit he talks about unrelated 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, [employer], and other things that simply don't make a whole lot of sense eating is fair - states he doesn't eat a balanced diet at home drinks orange soda - drinks little water; does not eat protein-rich foods; does not eat veggies states that they no longer live on the farm; a family member does he occasionally does visit the farm he does spend time in his backyard at his home Review of Systems Review of Systems: neuro - denies headache HENT - denies URI symptoms pulm - no cough GI - constipation; no N/V/D - no dysuria musculo - no joint effusions skin - no rashes Physical Exam Physical Exam: gen - NAD, pleasant confusion eyes - PERRL mouth - MMM; no lesions heart - RRR, s1 s2 lungs - CTA b/l abd - soft NT ND BS+ ext - no edema, pulses 2+ b/l neuro - strength 5/5 x 4 exts; no facial droop; speech fluent/clear; mild resting tremor of arms noted skin - bruise on right distal arm but no rashes psych - oriented to person, possible place? Results & Data Results & Data Vital Signs (Past 12 Hours) Vital Signs Temp Pulse Resp BP Pulse Ox O2 Del Method 12/19/23 15:00 37.1 C 103 H 18 131/70 96 Room Air 12/19/23 08:29 Room Air 12/19/23 07:16 37.0 C 67 16 112/67 97 Room Air Laboratory Results Laboratory Results - last 24 hr 12/19/23 12/19/23 12/19/23 06:00 06:00 06:00 WBC 8.78 RBC 4.03 L Hgb 12.5 L Hct 38.1 L MCV 94.5 MCH 31.0 MCHC 32.8 RDW Std Deviation 44.1 RDW Coeff of Jennifer 12.7 Plt Count 144 MPV 10.5 Immature Gran % (Auto) 0.5 Neut % (Auto) 86.4 Lymph % (Auto) 7.8 [place] % (Auto) 5.0 Eos % (Auto) 0.2 Baso % (Auto) 0.1 Neut # (Auto) 7.38 H Lymph # (Auto) 0.67 L [place] # (Auto) 0.43 Eos # (Auto) 0.02 Baso # (Auto) 0.01 Immature Gran # (Auto) 0.04 RBC Morphology Unremarkable ESR 26 H C-Reactive Protein 6.25 H Vitamin B1 Anaplasma Smear See Comment Cancelled A. phagocytophilum DNA Babesia Smear See Comment Cancelled Lyme Disease Screen SARS-CoV-2 (PCR) Influenza Type A (PCR) Influenza Type B (PCR) RSV (RT-PCR) 12/19/23 12/19/23 10:15 14:22 WBC RBC Hgb Hct MCV MCH MCHC RDW Std Deviation RDW Coeff of Jennifer Plt Count MPV Immature Gran % (Auto) Neut % (Auto) Lymph % (Auto) [place] % (Auto) Eos % (Auto) Baso % (Auto) Neut # (Auto) Lymph # (Auto) [place] # (Auto) Eos # (Auto) Baso # (Auto) Immature Gran # (Auto) RBC Morphology ESR C-Reactive Protein Vitamin B1 Anaplasma Smear A. phagocytophilum DNA Babesia Smear Lyme Disease Screen Negative SARS-CoV-2 (PCR) NEGATIVE Influenza Type A (PCR) Negative Influenza Type B (PCR) Negative RSV (RT-PCR) Negative PG Care Time/CCT Total # of Minutes Spent Total Time Spent with Patient: Total time spent is greater than 50% in coordination of care (as documented) at patient's floor/unit and/or counseling patient: Coding Level of Care Code 55141 SUB INP/OBS CARE 3/50MIN Diagnoses Acute encephalopathy G93.40 Thrombocytopenia D69.6 Chronic constipation K59.09 Hypothyroidism E03.9 Dementia F03.90
[2023-12-19] MEDS: MELATONIN 3 MG TAB PO SCH (20:31)
[2023-12-20] MEDS: ACETAMINOPHEN 325 MG TAB PO PRN (01:37)
[2023-12-20 07:29] LABS: Basophils # (auto) 0.03 K/uL (0.00-0.20); Basophils % (auto) 0.3 %; Eosinophils # (auto) 0.07 K/uL (0.00-0.50); Eosinophils % (auto) 0.8 %; Hematocrit (blood only) 36.8 % (42.0-52.0); Hemoglobin 12.2 g/dl (14.0-18.0); Immature Granulocytes # (auto) 0.04 K/uL (0.01-0.20); Immature Granulocytes % (auto) 0.5 %; Lymphocytes # (auto) 1.89 K/uL (1.20-3.40); Lymphocytes % (auto) 21.8 %; Mean Corpuscular Hemoglobin 31.3 pg (25.0-34.0); Mean Corpuscular Hgb Conc 33.2 g/dL (32.0-36.0); Mean Corpuscular Volume 94.4 fL (80.0-100.0); Mean Platelet Volume 10.6 fL (9.4-12.4); Monocytes # (auto) 0.93 K/uL (0.11-0.59); Monocytes % (auto) 10.7 %; Neutrophils # (auto) 5.71 K/uL (1.40-6.50); Neutrophils % (auto) 65.9 %; Platelet Count 161 K/uL (130-400); RDW Coefficient of Variation 13.1 % (11.5-14.5); RDW Standard Deviation 45.2 fL (36.4-46.3); White Blood Count 8.67 K/ul (4.8-10.8)
[2023-12-20] MEDS: POLYETHYLENE (MIRALAX) 17 GM PACK PO SCH (09:22)
[2023-12-20] MEDS: bisacodyL 5 MG TABEC PO ONE (09:22)
--- NOTE | 2023-12-20 13:28 | XRay Report ---
ORBIT RADIOGRAPHS 3 VIEWS HISTORY: pre-MRI screening. COMPARISON: None. FINDINGS: There are no radiopaque foreign bodies identified within the orbits. IMPRESSION: No radiopaque foreign bodies identified within the orbits. ACT 112: Negative or not required by law. Electronically signed by: Nic Ayala M.D. 12/20/2023 1:27 PM
[2023-12-20] MEDS: haloperidoL 1 MG TAB PO STA (13:56)
--- NOTE | 2023-12-20 14:23 | Magnetic Resonance Report ---
MR brain wo con CLINICAL HISTORY: altered MS, dementia; subacute CVA? TECHNIQUE: Multiplanar and multisequence MR images of the brain were obtained without intravenous con trast. Comparison: Comparison is made to CT head 12/18/2023 FINDINGS: No abnormal restricted diffusion is identified. Foci of T2 and FLAIR hyperintensity are noted in the paraventricular areas consistent with chronic small vessel ischemic disease. Ex vacuo ventriculomegal y and sulcal enlargement is noted compatible with diffuse volume loss. No mass is seen. There is no m ass effect or midline shift. There is no evidence of acute intraparenchymal hemorrhage. No extra axia l fluid collections are seen. The corpus callosum, pituitary gland, and cerebellar tonsils appear evelin ssly unremarkable. Flow voids of the major intracranial arterial vessels are identified. The imaged portions of the para nasal sinuses, mastoid air cells, and orbits are unremarkable. IMPRESSION: Chronic volume loss and age related white matter changes without evidence of acute abnormality. ACT 112: Negative or not required by law. Electronically signed by: Sin Armstrong M.D. 12/20/2023 2:22 PM
[2023-12-20] MEDS: MIRTAZAPINE TAB 15 MG TAB PO SCH (20:27)
--- NOTE | 2023-12-20 22:17 | Hospitalist Progress Note ---
Date of Service December 20, 2023 Assessment & Plan (1) Acute encephalopathy: Plan: etiology uncertain extensive w/u to date thus far negative including CT chest/abd/pelvis (constipation only), MRI Brain (no acute or subacute CVA or old CVA), tick-borne labs negative COVID/flu/RSV neg added on lyme screen, babesia/anaplasmosis smears -- all 3 negative CRP mildly high - significance uncertain, but downtrending, and no fevers or other infectious symptoms while here B1 level sent in light of poor nutritional status and weight loss consider empiric thiamine certainly severe constipation can sometimes cause altered MS in seniors especially individuals with dementia at baseline had 1 moderate BM yesterday does have what sounds like concomitant depression - apathy, no interest in activities, crying spells, poor appetite, poor sleep, etc after discussion with will start remeron 7.5mg HS with first dose tonight (2) Thrombocytopenia: Plan: minimally depressed in the 140s improved to >150 today significance uncertain infectious w/u negative including tick-borne labs (3) Chronic constipation: Plan: dulcolax daily while here (PO) miralax (if he will take it) daily if he won't take miralax consider small dose of lactulose daily (4) Hypothyroidism: Plan: TSH mildly elevated if he has been getting his synthroid regularly will increase dose to 100mcg daily will inquire with family records indicate he typically is very noncompliant with such (5) Dementia: Plan: advanced Check a B1 level while here B12 level wnl TSH noted as in #4 above Plan DVT proph - lovenox daily PT, OT evals appreciated watch overnight (starting remeron) if he has a good night and is stable in am will d/c to home tomorrow with his Admission and Anticipated Discharge Date Admission Date: December 18, 2023 Subjective patient tolerated MRI today had ordered haldol but ultimately did not need it to complete the study during my visit he was sitting in the chair his was present he tells the story of how he had gotten hit by a large tree branch years ago he told the story numerous times, struggling to give consistent details he otherwise cannot provide any meaningful history he apparently c/o left ear pain today states he has had this for many years off and on this has always been attributed to his previous head injury involving the tree branch?? he takes tylenol prn for this pain at home discussed with his his poor sleep at home, poor appetite, crying spells, etc we discussed initiating remeron for the above symptoms Review of Systems Review of Systems: Unobtainable due to cognitive status Physical Exam Physical Exam: gen - NAD, pleasant confusion, sitting in chair ears - b/l ear canals with copious cerumen but not impacted; no otitis externa b/l; left TM - only small portion visible but did appear normal; right TM not seen mouth - MMM; no lesions; poor dentition; all molars absent, just a few central incisors remain heart - RRR, s1 s2, no murmur lungs - CTA b/l abd - soft NT ND BS+ ext - no edema, pulses 2+ b/l neuro - mild resting tremor of arms noted psych - oriented to person only Results & Data Results & Data Vital Signs (Past 12 Hours) Vital Signs Temp Pulse Resp BP BP Pulse Ox O2 Del Method 12/20/23 20:45 36.6 C 89 18 150/90 H 95 Room Air 12/20/23 11:44 36.4 C L 86 14 160/80 H 96 Room Air Laboratory Results Laboratory Results - last 24 hr 12/20/23 06:56 WBC 8.67 RBC 3.90 L Hgb 12.2 L Hct 36.8 L MCV 94.4 MCH 31.3 MCHC 33.2 RDW Std Deviation 45.2 RDW Coeff of Jennifer 13.1 Plt Count 161 MPV 10.6 Immature Gran % (Auto) 0.5 Neut % (Auto) 65.9 Lymph % (Auto) 21.8 Saline % (Auto) 10.7 Eos % (Auto) 0.8 Baso % (Auto) 0.3 Neut # (Auto) 5.71 Lymph # (Auto) 1.89 Saline # (Auto) 0.93 H Eos # (Auto) 0.07 Baso # (Auto) 0.03 Immature Gran # (Auto) 0.04 C-Reactive Protein 5.82 H Vitamin B1 Pending A. phagocytophilum DNA Pending Diagnostic Findings Brain MRI 12/20/23 08:16 MR brain wo con CLINICAL HISTORY: altered MS, dementia; subacute CVA? TECHNIQUE: Multiplanar and multisequence MR images of the brain were obtained without intravenous contrast. Comparison: Comparison is made to CT head 12/18/2023 FINDINGS: No abnormal restricted diffusion is identified. Foci of T2 and FLAIR hyperin tensity are noted in the paraventricular areas consistent with chronic small vessel ischemic disease. Ex vacuo ventriculomegaly and sulcal enlargement is noted compatible with diffuse volume loss. No mass is seen. There is no mass effect or midline shift. There is no evidence of acute intraparenchymal hemorrhage. No extra axial fluid collections are seen. The corpus callosum, pituitary gland, and cerebellar tonsils appear grossly unremarkable. Flow voids of the major intracranial arterial vessels are identified. The imaged portions of the paranasal sinuses, mastoid air cells, and orbits are unremarkable. IMPRESSION: Chronic volume loss and age related white matter changes without evidence of acute abnormality. ACT 112: Negative or not required by law. Electronically signed by: Sin Armstrong M.D. 12/20/2023 2:22 PM Orbit X-Ray 12/20/23 08:43 ORBIT RADIOGRAPHS 3 VIEWS HISTORY: pre-MRI screening. COMPARISON: None. FINDINGS: There are no radiopaque foreign bodies identified within the orbits. IMPRESSION: No radiopaque foreign bodies identified within the orbits. ACT 112: Negative or not required by law. Electronically signed by: Nic Ayala M.D. 12/20/2023 1:27 PM PG Care Time/CCT Total # of Minutes Spent Total Time Spent with Patient: Total time spent is greater than 50% in coordination of care (as documented) at patient's floor/unit and/or counseling patient: Coding Level of Care Code 35570 SUB INP/OBS CARE 2/35MIN Diagnoses Acute encephalopathy G93.40 Thrombocytopenia D69.6 Chronic constipation K59.09 Hypothyroidism E03.9 Dementia F03.90
[2023-12-21] MEDS: OLANZAPINE 2.5 MG TAB PO PRN (00:16)
[2023-12-21] MEDS: THIAMINE HCL 100 MG TAB PO SCH (11:01)
--- NOTE | 2023-12-21 16:19 | Discharge Summary ---
Date of Service December 21, 2023 Admission HPI Per Admitting Provider Hoang Saavedra is an 78yo male with history of Dementia presenting with confusion. Patient is uncertain why he is here in the hospital. He has no acute complaints. He is quite confused during our encounter - reports that he has to "deal with the [employer] team that uses different weights and shovels" Additional information obtained from patient's and son (Citlali Saavedra - [phone]). and son report that patient has had a steady decline in cognitive function and memory over the last year. 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 He has wandered out of the home in the past as well. The family has placed bells on the doors to notify them if he leaves the house. Patient reported falling during the night two weeks ago but was able to get up afterwards - no injury. is unaware of any other falls since then. His reports some increased confusion over the last two weeks. He has been urinating throughout the home - in the trash cans, on the floor, etc. He has also been refusing to wear underwear and pants. Today patient was sitting in the garage on a lawn chair without pants or underwear on. He then started to wander around the yard and wouldn't listen to his . He was complaining about a pain in his side and wouldn't get out of his chair. EMS was called and he was brought to the ER. notes some acutely worsening confusion in the ER. He was pulling at his IV lines and wasn't answering questions appropriately. In the ER he is afebrile, HD stable Confusion ER Course: Haldol 2.5mg IV Discharge Exam gen - NAD, pleasant confusion, sitting in chair ears - b/l ear canals with copious cerumen but not impacted; no otitis externa b/l; left TM - only small portion visible but did appear normal; right TM not seen mouth - MMM; no lesions; poor dentition; all molars absent, just a few central incisors remain heart - RRR, s1 s2, no murmur lungs - CTA b/l abd - soft NT ND BS+ ext - no edema, pulses 2+ b/l neuro - mild resting tremor of arms noted psych - oriented to person only Discharge Data Allergies Allergy/AdvReac Type Severity Reaction Status Date / Time gluten Allergy Severe RASH Unverified 05/01/23 14:27 bee venom protein (honey bee) Allergy Intermediate SWELLING Unverified 05/01/23 14:27 caffeine Allergy Intermediate HEART Unverified 05/01/23 14:27 PALPITATION iodine Allergy Unknown Unknown Verified 05/01/23 14:27 magnesium sulfate Allergy Unknown Verified 05/01/23 14:27 latex Allergy Sneezing Verified 05/01/23 14:27 CONTRASTMEDIA Allergy Unknown Unknown Uncoded 05/01/23 14:27 POVIDONE IODINE (Generic Allergy Unknown Y Uncoded 05/01/23 14:27 Allergy) Consultations 12/18/23 23:34 ED Decision to Admit Stat Ordered Studies 12/18/23 18:07 CT chest with contrast [CT chest diagnostic w con] Stat 12/18/23 18:08 CT abd pelvis IV con only Stat 12/18/23 22:59 CT head/brain wo con Stat 12/20/23 08:16 MR brain wo con Urgent Hospital Course (1) Acute encephalopathy: etiology uncertain extensive w/u to date thus far negative including CT chest/abd/pelvis (constipation only), MRI Brain (no acute or subacute CVA or old CVA), tick-borne labs negative COVID/flu/RSV neg added on lyme screen, babesia/anaplasmosis smears -- all 3 negative CRP mildly high - significance uncertain, but downtrending, and no fevers or other infectious symptoms while here B1 level sent in light of poor nutritional status and weight loss consider empiric thiamine certainly severe constipation can sometimes cause altered MS in seniors especially individuals with dementia at baseline had 1 moderate BM yesterday does have what sounds like concomitant depression - apathy, no interest in activities, crying spells, poor appetite, poor sleep, etc after discussion with will start remeron 7.5mg HS with first dose tonight (2) Thrombocytopenia: minimally depressed in the 140s improved to >150 today significance uncertain infectious w/u negative including tick-borne labs (3) Chronic constipation: dulcolax daily while here (PO) miralax (if he will take it) daily if he won't take miralax consider small dose of lactulose daily (4) Hypothyroidism: TSH mildly elevated if he has been getting his synthroid regularly will increase dose to 100mcg daily will inquire with family records indicate he typically is very noncompliant with such (5) Dementia: advanced Check a B1 level while here B12 level wnl TSH noted as in #4 above Plan DVT proph - lovenox daily PT, OT dai appreciated watch overnight (starting remeron) if he has a good night and is stable in am will d/c to home tomorrow with his Home Health Attestation I certify that this patient is under my care and that I, or a physicians supply chain assistant working with me, had a face to-face encounter that meets the home health [id number] encounter requirements with this patient. The encounter with the patient was in whole, or in part, for the following medical condition, which is the primary reason for home health care (list medical condition): I certify that, based on my findings, the following services are medically necessary home health services: My clinical findings support the need for the above services because: Further, I certify that my clinical findings support that this patient is homebound (i.e. absences from home require considerable and taxing effort and are for medical reasons or confucianist services or infrequently or of short duration when for other reasons) because: Certification for Home Health Services: Based on the above findings, I certify that this patient is confined to the home and needs intermittent jail care, physical therapy and/or speech therapy or continues to need occupational therapy. The patient is under my care, and I have initiated the establishment of the plan of care. This patient will be followed by a physician who will periodically review the plan of care. Discharge Plan Discharge Items Patient Disposition: Home - Home Health Services Reason For Visit: WORSENING CONFUSION Discharge Diagnosis: 1. confusion - likely due to advancing dementia; extensive work-up looking for other causes of confusion was negative; MRI brain negative for old or new stroke 2. constipation 3. weight loss and malnutrition due to advanced dementia 4. advanced dementia 5. hypothyroidism 6. question of underlying depression 7. poor sleep - due to advanced dementia Activity: As commented below Activity Comment: activity as tolerated Non-emergency contact: Primary Care Provider Call non-emergency contact if: you have any medication questions, your symptoms worsen and you have a fever Follow-up/Referrals: Aurea Kaye MD [Primary Care Provider] - 12/27/23 10:45 am (with Dona Douglas (supply chain assistant)) Diet: Gluten Free Diet Texture: Easy to Chew Addtl Attending Provider Instructions: Mr & Mrs Saavedra - Despite an extensive work-up looking for causes of worsening confusion & behavior we did not find a specific etiology. MRI brain did not show any old or new stroke, tumor, blood, etc. CT chest, abdomen, and pelvis only showed constipation. Urinalysis did not show urinary infection. Lyme screening test was negative. Screening for other tick-borne diseases were negative. B12 level was normal. TSH (thyroid level) was suggestive of ongoing hypothyroidism which, if left untreated, can contribute to fatigue/weakness/worsening mood/etc. You had mentioned that Hoang has been having intermittent crying spells, poor sleep, poor appetite, etc. These are common symptoms in those with dementia, particularly when advanced. Sometimes there can be underlying depression in those with dementia and the symptoms can look like what you have been seeing. Recommendations - 1. to help with sleep, appetite, and potentially depression -- take Remeron (mirtazapine) 7.5mg at bedtime. It is an oral disintegrating tablet so if you have a hard time taking it by mouth you can slip it in a spoon of pudding, applesauce, etc. The tablet dissolves on the tongue or in the foods mentioned. 2. in the event there is thiamine deficiency take thiamine 200mg twice daily (even once daily is worthwhile) for about 1 month. 3. for constipation continue the senna (ex-lax). If you need additional constipation relief consider prescription lactulose 15ml once daily. 4. if Hoang's sleep continues to be poor, or if there is ongoing/severe confusion or wandering at night - Hoang could potentially need a medicine called an "antipsychotic" to take at bedtime. We try not to use these medicines unless other measures have not helped. I have prescribed a medicine called zyprexa (olanzapine) that can be taken at bedtime IF you ultimately need this at home. This medicine causes sedation and helps with some confusion. There are many side effects with antipsychotic medicines unfortunately. If you feel you need to use this medicine please let Dr Kaye's office know right away. This medicine can also be dissolved in a spoonful of applesauce, etc. Again, if you feel you ultimately need to use it, let Dr Kaye know. 5. Mrs Saavedra - please try to have time for yourself each and every day as being a caregiver for someone with dementia is exhausting. Please look into private duty nurses who can give you a break, someone from your latter day, etc. That way you have time to yourself each day to refresh and recharge. 6. since Hoang won't take the miralax simply stop it. 7. if Hoang will take the thyroid medicine that will potentially help some symptoms. If he refuses to take it that is ok. Follow-up - see Dr Kaye within a week Return to [facility] if - * there is fever over 100 degrees * there is severe agitation, hallucinations, concerns about Hoang's safety, etc * any other concerns It was my pleasure to care for Hoang! Pending Studies at Discharge: Yes Studies:: tick-borne labs; thiamine (vitamin B1) level Stand-Alone Forms: My [facility] [employer], Smoking Cessation Medications and DC Order Prescriptions: New thiamine HCl (vitamin B1) 100 mg Tablet 200 mg PO BID 30 Days Qty: 120 0RF mirtazapine [Remeron SolTab] 15 mg tablet,disintegrating 7.5 mg PO HS Qty: 30 2RF lactulose 10 gram/15 mL solution 10 g PO DAILY Qty: 237 0RF Rx Instructions: for constipation olanzapine 5 mg tablet,disintegrating 2.5 mg PO HS PRN (Reason: severe confusion/agitation) Qty: 15 0RF Continued epinephrine 0.3 mg/0.3 mL auto-injector 0.3 mg IM ONCE PRN (Reason: anaphylaxis) Qty: 1 Rx Instructions: unable to verify with pharmacy 12/20/23 pseudoephedrine HCl [Sudafed] 30 mg tablet 60 mg PO BID Rx Instructions: otc, unable to verify 12/20/23 Ex-Lax (sennosides) 15 mg Tablet 15 mg PO QAM Rx Instructions: otc, unable to verify 12/20/23 Changed levothyroxine 88 mcg tablet 88 mcg PO QAM Qty: 1 0RF Rx Instructions: if he is willing to take Discontinued polyethylene glycol 3350 [Miralax] 17 gram/dose powder 17 g PO DAILY PRN (Reason: constipation) Qty: 119 0RF Rx Instructions: otc, unable to verify 12/20/23 Discharge Orders: Discharge Order (Routine); Ordered 12/21/23 Ordered By: Eulalio Alvarez/Other Patient Handouts: Dementia Safety Tips for Caregivers, Dementia Caregiver Tips, Alzheimer Disease Admission Data Admit Date/Time: 12/18/23 23:45 Attending Provider: Eulalio Mobley Admit Provider: Julee Mishra Primary Care Provider: Aurea Kaye Other Providers: Julee Mishra Coding Diagnoses Acute encephalopathy G93.40 Thrombocytopenia D69.6 Chronic constipation K59.09 Hypothyroidism E03.9 Dementia F03.90
== END 2023-12-21 17:11 | disposition home or self-care (01) | DRG 884 ==
LOC: ED 17:33 → SUATTDRO 23:45 → 3E 23:45

== ENCOUNTER 2024-08-26 15:32 | Inpatient (IN) ==
--- NOTE | 2024-08-26 17:04 | Emergency Department Note ---
Impression & Plan Ambulatory dysfunction ADMIT ED Provider Note HPI: History obtained from patient's granddaughter and patient's son. The patient is a 78-year-old gentleman with history of dementia, who presents the emergency department with a chief complaint of leg swelling and sores. Patient presents with multiple family members at the bedside including his son and POA, they state that the patient has been having difficulty at home recently with agitation secondary to his dementia. He is not taking any of his medications. He has had some sores and swelling in his leg for several weeks and he has refused to have them evaluated. He has had multiple falls at home recently and family is concerned that he needed a medical evaluation and therefore he was brought in by EMS today. ROS: - Per HPI Differential Diagnosis: Cellulitis, sepsis, DVT, chronic deconditioning in the setting of underlying dementia, intracranial injury to include subdural hematoma, epidural hematoma, acute kidney injury/dehydration, amongst other potential pathologies. *Outpatient medications and allergy history reviewed. PE: General: Alert, no acute distress HEENT: Normocephalic, trachea midline Eyes: Extraocular eye movement is intact, no scleral erythema Pulmonary: Clear to auscultation bilaterally, no wheezing Cardio: Regular rate and rhythm GI: Abdomen is soft to palpation : No suprapubic tenderness MSK: No evidence of trauma or malformation of the extremities, bilateral lower extremity edema, left greater than right Skin: Moderate erythema with skin peeling in several different areas of the left lower extremity below the knee, there is no crepitus to palpation of the soft tissues or pain out of proportion to exam, no fluctuant mass/abscess, otherwise no evidence of rash Neuro: Alert, no focal deficits, ambulates all extremity spontaneously Psychiatric: Demented but overall cooperative with exam INDEPENDENT INTERPRETATIONS: monitoring tech: (As interpreted by myself): - An order was placed for continuous cardiac monitoring - Patient was noted to be in sinus rhythm with a rate of 90 Chest x-ray: (As interpreted by myself): Nonspecific left lower lobe opacity Interventions provided in ED: -IV Haldol, IV fluid bolus Medical Decision Making: IV was established and lab work obtained, patient was placed on telemetry monitor. Patient was ordered some IM Haldol to facilitate workup as he did have some mild agitation and persistently pulled his arm away from IV placement. Lab work shows no leukocytosis, hemoglobin is stable at 12.9, platelet count is normal, CMP does not show any evidence of any critical findings, no evidence of acute kidney injury, lactic acid is mildly elevated at 2.5, patient was given IV fluids and this did downtrend within normal limits at 1.5. Troponin is negative, BNP is normal, procalcitonin is low suggesting against bacterial infection. I discussed all of the above findings with the patient's family including his granddaughter and his son as well as the patient's . Following discussion with the family, they would like the patient admitted for further management and likely placement as he is having multiple falls at home, he will not take medications, and he does not have good outpatient follow-up. Patient may ultimately require placement and this was discussed with the family as well. [facility] hospitalist service was consulted for admission and the patient was placed for admission in stable condition. Ultrasound imaging of the left lower extremity was ordered and official read from radiology is pending at the time of admission. Will defer any potential antibiotic therapy to the inpatient team given reassuring lab work and low procalcitonin. Blood cultures were drawn in the ED. Consultants/Discussions held with other healthcare providers: -Hospitalist, Dr. Gomez Disposition discussion held by myself with: -Patient's family Diagnosis: 1. Ambulatory dysfunction, acute 2. Lower extremity edema, bilateral, acute 3. Dementia with mild agitation, acute 4. Lactic acidosis, acute Disposition: Admission Tian Lopez DO Emergency Medicine Past Med/Surg History Problem List (Updated 08/26/24 @ 22:26 by Tian Lopez DO) Ambulatory dysfunction (Acute) Leg ulcer, left Left leg swelling Agitation Hypothyroidism Malnutrition Acute encephalopathy Dementia Ambulatory dysfunction (Acute) Confusion (Acute) Generalized weakness (Acute) Thrombocytopenia Chronic constipation Cognitive impairment Encounter for pre-operative examination Cataracts, bilateral (Chronic) Weight loss (Chronic) Impacted cerumen, left ear (Acute) Left ear pain (Acute) Memory loss (Chronic) Health care maintenance Urine incontinence (Chronic) Fatigue (Chronic) Iron deficiency anemia (Chronic) Constipation (Chronic) Anemia (Chronic) Dermatitis, nummular (Chronic) Hypercholesterolemia (Chronic) Palpitations (Chronic) Tubular adenoma of colon (Chronic) History of vertigo (Chronic) Medical History Hypothyroidism 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 sting Degloving injury of left hand Multiple open fractures of left hand bones Closed fracture distal radius and ulna Surgical History Hx of hand surgery Family History Other Family history non-contributory Social History Smoking Status: Unknown if ever smoked Second Hand Exposure: No (unknown, unable to answer); Do You Dip or Chew Tobacco: No (unknown, unable to answer); Hx Alcohol Use: No (unknown, unable to answer) Hx Substance Use: No (unknown, unable to answer) Preferred Language: French Communication Ability: Effective Payroll Coordinator Required: No Beliefs That Will Affect Care: None marital status: Current Living Situation: Spouse current occupational status: retired Feels Safe at Home: Yes Assistive Devices: Cane Allergies Allergies Allergy/AdvReac Type Severity Reaction Status Date / Time gluten Allergy Severe RASH Unverified 05/07/24 15:02 bee venom protein (honey bee) Allergy Intermediate SWELLING Unverified 05/07/24 15:02 caffeine Allergy Intermediate HEART Unverified 05/07/24 15:02 PALPITATION iodine Allergy Unknown Unknown Verified 05/07/24 15:02 magnesium sulfate Allergy Unknown Verified 05/07/24 15:02 latex Allergy Sneezing Verified 05/07/24 15:02 CONTRASTMEDIA Allergy Unknown Unknown Uncoded 05/07/24 15:02 POVIDONE IODINE (Generic Allergy Unknown Y Uncoded 05/07/24 15:02 Allergy) Home Meds Home Medications Medication Instructions Recorded Confirmed sennosides 15 mg tablet (Ex-Lax 15 mg PO QAM 09/23/18 05/07/24 (sennosides)) epinephrine 0.3 mg/0.3 mL 0.3 mg IM ONCE PRN anaphylaxis #1 03/22/19 05/07/24 injection, auto-injector ea pseudoephedrine HCl 30 mg tablet 60 mg PO BID 05/09/22 05/07/24 (Sudafed) Previous Rx's Medication Instructions Recorded lactulose 10 gram/15 mL oral 10 g (15 mL) PO DAILY #237 mL 12/21/23 solution levothyroxine 88 mcg tablet 88 mcg PO QAM #1 tab 12/21/23 mirtazapine 15 mg disintegrating 7.5 mg (1/2 x 15 mg) PO HS #30 tabs 12/21/23 tablet (Remeron SolTab) olanzapine 5 mg disintegrating 2.5 mg (1/2 x 5 mg) PO HS PRN 12/21/23 tablet severe confusion/agitation #15 tabs furosemide 20 mg tablet (Lasix) 20 mg PO DAILY #5 tabs 05/10/24 Results & Data (ED) Vital Signs Vital Signs - 24 hr 08/26/24 16:00 08/26/24 16:24 Pulse Rate 96 H 85 Pulse Rhythm Regular Pulse Strength Normal Respiratory Rate 20 Respiratory Effort / Characteristics Non-Labored Respiratory Depth Normal Respiratory Pattern Regular Blood Pressure 137/101 H Blood Pressure Mean 113 Blood Pressure Position Sitting Pulse Oximetry 97 Oxygen Delivery Method Room Air Sepsis Recent Fever Within 48 Hours No Sepsis New/Unexplained Change in Mental Status N/A Sepsis Action Taken by Nursing No Action Required Laboratory Data 08/26/24 17:25 08/26/24 17:25 Lab Results 08/26/24 08/26/24 Range/Units 17:25 19:25 WBC 5.37 (4.8-10.8) K/ul RBC 4.15 L (4.70-6.10) M/uL Hgb 12.9 L (14.0-18.0) g/dl Hct 39.6 L (42.0-52.0) % MCV 95.4 (80.0-100.0) fL MCH 31.1 (25.0-34.0) pg MCHC 32.6 (32.0-36.0) g/dL RDW Std Deviation 46.1 (36.4-46.3) fL RDW Coeff of Jennifer 13.2 (11.5-14.5) % Plt Count 156 (130-400) K/uL MPV 10.6 (9.4-12.4) fL Immature Gran % (Auto) 0.4 % Neut % (Auto) 56.0 % Lymph % (Auto) 25.3 % [place] % (Auto) 13.0 % Eos % (Auto) 4.7 % Baso % (Auto) 0.6 % Neut # (Auto) 3.01 (1.40-6.50) K/uL Lymph # (Auto) 1.36 (1.20-3.40) K/uL [place] # (Auto) 0.70 H (0.11-0.59) K/uL Eos # (Auto) 0.25 (0.00-0.50) K/uL Baso # (Auto) 0.03 (0.00-0.20) K/uL Immature Gran # (Auto) 0.02 (0.01-0.20) K/uL Sodium 139 (136-145) mmol/L Potassium 4.3 (3.5-5.1) mmol/L Chloride 103 (98-107) mmol/L Carbon Dioxide 30 (21-32) mmol/L Anion Gap 6 (3-11) BUN 15 (6-23) mg/dl Creatinine 0.95 (0.6-1.4) mg/dl Est Cr Clr Drug Dosing 60.0 ml/min eGFR 80.92 BUN/Creatinine Ratio 15.8 (10-20) Glucose 120 H (70-99(Fasting)) mg/dl Lactate 2.5 H* 1.5 (0.4-2.0) mmol/L Calcium 8.6 (8.6-10.3) mg/dl Magnesium 2.1 (1.7-2.4) mg/dl Total Bilirubin 0.6 (0.2-1.0) mg/dl Direct Bilirubin 0.1 (0-0.2) mg/dl AST 22 (13-39) U/L ALT 15 (7-52) U/L Alkaline Phosphatase 110 H (34-104) U/L Troponin I High Sens 3.8 (0-20) pg/ml B-Natriuretic Peptide 31 (0-100) pg/ml Total Protein 6.6 (6.0-8.3) gm/dl Albumin 3.7 (3.4-5.0) gm/dl Procalcitonin < 0.02 (0-0.5) ng/ml Administered Medications Discontinued Medications Haloperidol Lactate (Haloperidol Lactate 5 Mg/Ml 1 Ml Vial) 2 mg IV NOW STA Stop: 08/26/24 17:02 Last Admin: 08/26/24 17:58 Dose: Not Given Documented By: CEF Haloperidol Lactate (Haloperidol Lactate 5 Mg/Ml 1 Ml Vial) 3 mg IM NOW STA Stop: 08/26/24 17:56 Last Admin: 08/26/24 18:05 Dose: 3 mg Documented By: CEF Haloperidol Lactate (Haloperidol Lactate 5 Mg/Ml 1 Ml Vial) 3 mg IV NOW STA Stop: 08/26/24 20:43 Last Admin: 08/26/24 20:53 Dose: 3 mg Documented By: CEF Sodium Chloride (Nss) 500 mls @ 999 mls/hr IV .Q31M ONE Stop: 08/26/24 21:11 Last Infusion: 08/26/24 22:04 Dose: Infused Documented By: Admin: 08/26/24 20:56 Dose: 999 mls/hr Documented By: CEF Imaging Data Radiologist's Impression: Chest X-Ray 08/26/24 17:01 INDICATION: Confusion. TECHNIQUE: Frontal radiograph of the chest. COMPARISON: CT from 12/18/2023. FINDINGS: The cardiomediastinal silhouette and pulmonary vasculature appear within normal limits. Left lower lobe atelectasis/airspace disease. No pleural effusion or pneumothorax. No acute osseous abnormality evident. IMPRESSION: Left lower lobe atelectasis/airspace disease. Electronically signed by Raphael Whitaker 08-26-2024 6:[address] 08/26/24 17:04 Clinical History: Fall Technique: Axial computed tomography images were obtained of the brain without intravenous contrast. Comparison is made to the MRI of the brain dated 12/20/2023 Findings: This examination is limited by motion artifact There is unchanged cerebral atrophy, within expected limits for the patient's age. Areas of decreased attenuation are seen within the periventricular white matter, likely representing chronic small vessel ischemic disease. There is no definite sign of acute or old infarction. No intracranial hemorrhage is evident. No definite mass lesion is seen on this noncontrast examination. There is no midline shift or other form of herniation. There is unchanged ventricular prominence that is likely due to the atrophy. No definite hydrocephalus is seen. No fracture is identified. The orbits and the visualized paranasal sinuses appear unremarkable. The mastoid air cells appear clear. Impression: 1. Cerebral atrophy and chronic small vessel ischemic disease 2. No definite acute pathology. Evaluation is limited by motion artifact Electronically signed by Bao Hardy 08-26-2024 6:44 PM Discharge Plan Visit Data Chief Complaint: Hypertension Stated Complaint: HYPERTENSION, L LEG SORES ED Provider: Tian Lopez Discharge Problem: Ambulatory dysfunction Patient Disposition: Admitted As Inpatient Forms Stand Alone Forms: [facility] Prescriptions Prescriptions: No Action furosemide [Lasix] 20 mg tablet 20 mg PO DAILY Qty: 5 0RF epinephrine 0.3 mg/0.3 mL auto-injector 0.3 mg IM ONCE PRN (Reason: anaphylaxis) Qty: 1 Rx Instructions: unable to verify with pharmacy 12/20/23 pseudoephedrine HCl [Sudafed] 30 mg tablet 60 mg PO BID Rx Instructions: otc, unable to verify 12/20/23 Ex-Lax (sennosides) 15 mg Tablet 15 mg PO QAM Rx Instructions: otc, unable to verify 12/20/23 mirtazapine [Remeron SolTab] 15 mg tablet,disintegrating 7.5 mg PO HS Qty: 30 2RF lactulose 10 gram/15 mL solution 10 g PO DAILY Qty: 237 0RF Rx Instructions: for constipation levothyroxine 88 mcg tablet 88 mcg PO QAM Qty: 1 0RF Rx Instructions: if he is willing to take olanzapine 5 mg tablet,disintegrating 2.5 mg PO HS PRN (Reason: severe confusion/agitation) Qty: 15 0RF Referrals Referrals: Hiro Mendez MD [Primary Care Provider] -
[2024-08-26 17:43] LABS: Basophils # (auto) 0.03 K/uL (0.00-0.20); Basophils % (auto) 0.6 %; Eosinophils # (auto) 0.25 K/uL (0.00-0.50); Eosinophils % (auto) 4.7 %; Hematocrit (blood only) 39.6 % (42.0-52.0); Hemoglobin 12.9 g/dl (14.0-18.0); Immature Granulocytes # (auto) 0.02 K/uL (0.01-0.20); Immature Granulocytes % (auto) 0.4 %; Lymphocytes # (auto) 1.36 K/uL (1.20-3.40); Lymphocytes % (auto) 25.3 %; Mean Corpuscular Hemoglobin 31.1 pg (25.0-34.0); Mean Corpuscular Hgb Conc 32.6 g/dL (32.0-36.0); Mean Corpuscular Volume 95.4 fL (80.0-100.0); Mean Platelet Volume 10.6 fL (9.4-12.4); Neutrophils # (auto) 3.01 K/uL (1.40-6.50); Platelet Count 156 K/uL (130-400); RDW Coefficient of Variation 13.2 % (11.5-14.5); RDW Standard Deviation 46.1 fL (36.4-46.3); Red Blood Count 4.15 M/uL (4.70-6.10); White Blood Count 5.37 K/ul (4.8-10.8)
[2024-08-26] MEDS: HALOPERIDOL LACTATE 5 MG/ML 1 ML VIAL IV STA ×2 (17:58→20:53)
[2024-08-26 18:00] LABS: Albumin Level 3.7 gm/dl (3.4-5.0); BUN Creatinine Ratio 15.8 (10-20); Bilirubin Direct 0.1 mg/dl (0-0.2); Bilirubin,Total 0.6 mg/dl (0.2-1.0); Calcium 8.6 mg/dl (8.6-10.3); Magnesium 2.1 mg/dl (1.7-2.4); Potassium 4.3 mmol/L (3.5-5.1); Total Protein 6.6 gm/dl (6.0-8.3)
[2024-08-26] MEDS: HALOPERIDOL LACTATE 5 MG/ML 1 ML VIAL IM STA (18:05)
[2024-08-26 18:06] LABS: Troponin I High Sensitivity 3.8 pg/ml (0-20)
--- NOTE | 2024-08-26 18:23 | XRay Report ---
INDICATION: Confusion. TECHNIQUE: Frontal radiograph of the chest. COMPARISON: CT from 12/18/2023. FINDINGS: The cardiomediastinal silhouette and pulmonary vasculature appear within normal limits. Left lower lobe atelectasis/airspace disease. No pleural effusion or pneumothorax. No acute osseous abnormality evident. IMPRESSION: Left lower lobe atelectasis/airspace disease. Electronically signed by Raphael Whitaker 08-26-2024 6:22 PM
--- NOTE | 2024-08-26 18:45 | CT Scan Report ---
Clinical History: Fall Technique: Axial computed tomography images were obtained of the brain without intravenous contrast. Comparison is made to the MRI of the brain dated 12/20/2023 Findings: This examination is limited by motion artifact There is unchanged cerebral atrophy, within expected limits for the patient's age. Areas of decreased attenuation are seen within the periventricular white matter, likely representing chronic small vessel ischemic disease. There is no definite sign of acute or old infarction. No intracranial hemorrhage is evident. No definite mass lesion is seen on this noncontrast examination. There is no midline shift or other form of herniation. There is unchanged ventricular prominence that is likely due to the atrophy. No definite hydrocephalus is seen. No fracture is identified. The orbits and the visualized paranasal sinuses appear unremarkable. The mastoid air cells appear clear. Impression: 1. Cerebral atrophy and chronic small vessel ischemic disease 2. No definite acute pathology. Evaluation is limited by motion artifact Electronically signed by Bao Hardy 08-26-2024 6:44 PM
[2024-08-26] MEDS: SODIUM CHLORIDE 0.9% 500 ML IV ONE (20:56)
[2024-08-26] MEDS ORDERED: POLYETHYLENE (MIRALAX) 17 GM PACK PO PRN (21:38)
--- NOTE | 2024-08-26 21:49 | History & Physical Report ---
Date of Service August 26, 2024 Assessment & Plan (1) Dementia: Plan: Pt is a 78 yo male with PMH of dementia and chronic bilateral LE w/ left lower leg ulcer presenting to the ER d/t increasing agitation at home. Increased agitation in the setting of underlying dementia - pt's family notes increasing behavioral issues at home; they are unclear about what their options are in terms of care options (home health vs. short term stays vs. prison, etc) - case management consulted to discuss discharge planning (pt's requested that both sons are also involved in care discussions) - s/p haldol 3mg IV in the ER which calmed pt slightly; haldol 5mg IV ordered PRN for agitation - for future control, consideration may be given to liquid antipsychotics (?quetiapine) which pt may be more compliant with rather than PO forms Chronic left lower extremity edema/ulcer - suspect secondary to venous stasis and inability of pt to elevate leg to control swelling - left LE US pending to r/o DVT - blood cx pending - upon admission, pt's leg wound does not appear infected (in addition to no leukocytosis, neg procal); will defer ABX on admission Diet: regular Code: full- not discussed upon admission (would recommend further discussion with family concerning pt/their wishes) DVT ppx: lovenox Dispo: admit to med/surg; expect pt will need placement and/or home health options upon discharge (2) Ambulatory dysfunction: (3) Agitation: (4) Left leg swelling: (5) Leg ulcer, left: History of Present Illness Chief Complaint: agitation, ambulatory dysfunction Primary Care Provider: Hiro Mendez MD Pt is a 78 yo male with PMH of dementia and chronic bilateral LE w/ left lower leg ulcer presenting to the ER d/t increasing agitation at home. Pt's and son at bedside and providing all history. Family notes that pt has become increasingly resistant to care over the past many months including refusing doctors appointments, doctor exams, and medications at home. His behaviors at home have become somewhat disrupting including frequent spitting. He will not comply with elevation of his legs to help with his LE edema. Family is concerned that his left leg may be infected. They state he appears to be in pain in his leg but will refuse to take medication for it. In the ER, pt was given haldol 3 mg IV and NS 500cc. Allergies Allergy/AdvReac Type Severity Reaction Status Date / Time gluten Allergy Severe RASH Unverified 05/07/24 15:02 bee venom protein (honey bee) Allergy Intermediate SWELLING Unverified 05/07/24 15:02 caffeine Allergy Intermediate HEART Unverified 05/07/24 15:02 PALPITATION iodine Allergy Unknown Unknown Verified 05/07/24 15:02 magnesium sulfate Allergy Unknown Verified 05/07/24 15:02 latex Allergy Sneezing Verified 05/07/24 15:02 CONTRASTMEDIA Allergy Unknown Unknown Uncoded 05/07/24 15:02 POVIDONE IODINE (Generic Allergy Unknown Y Uncoded 05/07/24 15:02 Allergy) Home Medications Medication Instructions Recorded Confirmed Type sennosides 15 mg tablet (Ex-Lax 15 mg PO QAM 09/23/18 05/07/24 History (sennosides)) epinephrine 0.3 mg/0.3 mL 0.3 mg IM ONCE PRN anaphylaxis #1 03/22/19 05/07/24 History injection, auto-injector ea pseudoephedrine HCl 30 mg tablet 60 mg PO BID 05/09/22 05/07/24 History (Sudafed) lactulose 10 gram/15 mL oral 10 g (15 mL) PO DAILY #237 mL 12/21/23 05/07/24 Rx solution levothyroxine 88 mcg tablet 88 mcg PO QAM #1 tab 12/21/23 05/07/24 Rx mirtazapine 15 mg disintegrating 7.5 mg (1/2 x 15 mg) PO HS #30 tabs 12/21/23 05/07/24 Rx tablet (Remeron SolTab) olanzapine 5 mg disintegrating 2.5 mg (1/2 x 5 mg) PO HS PRN 12/21/23 05/07/24 Rx tablet severe confusion/agitation #15 tabs furosemide 20 mg tablet (Lasix) 20 mg PO DAILY #5 tabs 05/10/24 Rx Past Med/Surg History Problem List (Updated 08/26/24 @ 22:26 by Tian Lopez DO) Ambulatory dysfunction (Acute) Leg ulcer, left Left leg swelling Agitation Hypothyroidism Malnutrition Acute encephalopathy Dementia Ambulatory dysfunction (Acute) Confusion (Acute) Generalized weakness (Acute) Thrombocytopenia Chronic constipation Cognitive impairment Encounter for pre-operative examination Cataracts, bilateral (Chronic) Weight loss (Chronic) Impacted cerumen, left ear (Acute) Left ear pain (Acute) Memory loss (Chronic) Health care maintenance Urine incontinence (Chronic) Fatigue (Chronic) Iron deficiency anemia (Chronic) Constipation (Chronic) Anemia (Chronic) Dermatitis, nummular (Chronic) Hypercholesterolemia (Chronic) Palpitations (Chronic) Tubular adenoma of colon (Chronic) History of vertigo (Chronic) Medical History Hypothyroidism 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 sting Degloving injury of left hand Multiple open fractures of left hand bones Closed fracture distal radius and ulna Surgical History Hx of hand surgery Family History Other Family history non-contributory Social History Smoking Status: Unknown if ever smoked Preferred Language: Eritrean Communication Ability: Impaired School Counselor Required: No Beliefs That Will Affect Care: None marital status: Current Living Situation: Spouse current occupational status: retired Feels Safe at Home: Yes Assistive Devices: Cane Assistive Devices Comment: pt. cognitively impaired, unable to answer Review of Systems Review of Systems: Unobtainable due to cognitive status Physical Exam Constitutional: minimal distress, vitals WNL. Respiratory: Non labored breathing. No accessory muscle use. Cardiovascular: Clinically well perfused. Bilateral LE edema L>R. Skin: Erythema of lower left leg noted with ulceration of lateral portion of left leg. No pus or drainage noted. Psychiatric: Speech is tangential and mostly incoherent but occasionally pt able to answer questions Results & Data Results & Data Vital Signs (Past 12 Hours) Vital Signs Pulse Resp BP Pulse Ox O2 Del Method 08/26/24 16:24 85 08/26/24 16:00 96 H 20 137/101 H 97 Room Air Supervising Physician Co-Signing Physician Notes Attending addendum: I have physically seen this patient, have supervised the medical residents activities, and agree with the H&P unless as otherwise noted. Assessment and Plan: The patient is a 78-year-old male with a past medical history including dementia, chronic bilateral lower extremity cellulitis with left lower leg ulcer, who presents to the ED due to increasing agitation at home, refusing to take medications and treatment. #Increasing agitation in the setting of progressive dementia- Patient's family notes decreased ability to care for patient at home due to behavioral issues They are agreeable to discussions with case management for discharge planning regarding options including home health versus short-term stay versus prison etc. From the ED patient received the following: Haldol 2 mg IV, Haldol 3 mg IM, and Haldol 3 mg IV Hold on medications listed for medications, as patient refuses to take them Of note, brain MRI on 12/20/2023 showed chronic small vessel disease Will consult psychiatry for further assistance Chronic left lower extremity edema/ulcerations- Patient unable to cooperate with appropriate medical care Left lower extremity ultrasound to assess for possible DVT Wound care consult Disposition consult delinquency prevention social worker Most important process to determine this admission will be long-term medical care Resident Activity Tracking Resident Involvement: Resident Care Provided Care Provided: Adult Hospital Medicine
--- NOTE | 2024-08-27 03:20 | Billing Data ---
Date of Service August 27, 2024 Coding Level of Care Code 18147 INT INP/OBS CARE
[2024-08-27] MEDS: ENOXAPARIN INJ 40 MG/0.4 ML SYR SQ SCH (09:42)
[2024-08-27] MEDS: HALOPERIDOL LACTATE 5 MG/ML 1 ML VIAL IM PRN (09:43)
--- NOTE | 2024-08-27 10:19 | Ultrasound Report ---
LEFT LOWER EXTREMITY VENOUS DOPPLER CLINICAL HISTORY: swelling, eval for dvt COMPARISON STUDY: No previous studies for comparison. TECHNIQUE: Sonography of the deep venous system of the left lower extremity was performed. Compressi on and augmentation were evaluated. FINDINGS: The left common femoral, superficial femoral and popliteal veins were compressible. Augmen tation was normal. Flow was shown within the deep calf vessels. Subcutaneous edema within the medial left calf was incidentally noted. There is wall thickening of a superficial vein of the posterior lef t knee. IMPRESSION: No evidence of deep venous thrombus within the left lower extremity. ACT 112: Negative or not required by law. Electronically signed by: Singh Barahona M.D. 08/27/2024 10:18 AM
--- NOTE | 2024-08-27 11:28 | Hospitalist Progress Note ---
Date of Service August 27, 2024 Assessment & Plan (1) Dementia: Plan: Pt is a 78 yo male with PMH of dementia and chronic bilateral LE w/ left lower leg ulcer presenting to the ER d/t increasing agitation at home. Increased agitation in the setting of underlying dementia - pt's family notes increasing behavioral issues at home; they are unclear about what their options are in terms of care options (home health vs. short term stays vs. [facility], etc) - case management consulted to discuss discharge planning (pt's requested that both sons are also involved in care discussions) - s/p haldol 3mg IV in the ER which calmed pt slightly; haldol 5mg IV ordered PRN for agitation - Discussed with , she is open for placement for him, given worsening dementia (2) Leg ulcer, left: Plan: Chronic left lower extremity edema/ulcer - suspect secondary to venous stasis and inability of pt to elevate leg to control swelling - left LE US pending to r/o DVT - blood cx pending - upon admission, pt's leg wound does not appear infected (in addition to no leukocytosis, neg procal); will defer ABX on admissio (3) Ambulatory dysfunction: (4) Agitation: (5) Left leg swelling: Plan I spoke to the , she is open to placement for him, but wants to discuss her options with the adult protective caseworker Admission and Anticipated Discharge Date Admission Date: August 26, 2024 Subjective patient seen and examined, he is confused, sitter by the bedside Review of Systems Review of Systems: unreliable due to dementia Physical Exam Physical Exam: The patient is awake, alert confused HEENT--PERRL, EOMI, mucous membranes and oropharynx mildly dry Neck--supple. No JVD. No bruits. Thyroid normal, trachea midline, no adenopathy. Heart--normal S1 and S2. No murmurs, rubs or gallops. Lungs--clear bilaterally, no respiratory distress, no accessory muscle use. Abdomen--normal bowel sounds and soft. Extremities--no cyanosis or clubbing. No edema. Dermatologic--left leg wound, cellulitis Neurologic--unable to evaluate due to confusion Rheumatologic--normal range of motion. Psychiatric--normal affect. Results & Data Results & Data Vital Signs (Past 12 Hours) Vital Signs Temp Pulse Pulse Resp BP BP Pulse Ox 08/27/24 07:51 99.5 F 82 16 142/70 H 99 08/27/24 00:15 98.1 F 95 H 20 158/78 H 96 08/27/24 00:05 94 H 20 95 O2 Del Method 08/27/24 07:51 Room Air 08/27/24 00:15 Room Air 08/27/24 00:05 Room Air PG Care Time/CCT Total # of Minutes Spent Total Time Spent with Patient: Total time spent is greater than 50% in coordination of care (as documented) at patient's floor/unit and/or counseling patient: Coding Level of Care Code 98362 SUB INP/OBS CARE 2/35MIN Diagnoses Dementia F03.90 Leg ulcer, left L97.929 Ambulatory dysfunction R26.2 Agitation R45.1 Left leg swelling M79.89 Time Spent (min) 35
[2024-08-27] MEDS: ACETAMINOPHEN 325 MG TAB PO PRN (21:44)
[2024-08-27] MEDS: MELATONIN 3 MG TAB PO PRN (21:46)
[2024-08-28] MEDS: ACETAMINOPHEN 1,000 MG/100 ML VIAL IV STA (00:14)
[2024-08-28] MEDS: DICLOFENAC SOD 1% GEL 100 GM TUBE EXT PRN (00:23)
--- NOTE | 2024-08-28 10:59 | Hospitalist Progress Note ---
Date of Service August 28, 2024 Assessment & Plan (1) Dementia: Plan: Pt is a 78 yo male with PMH of dementia and chronic bilateral LE w/ left lower leg ulcer presenting to the ER d/t increasing agitation at home. Increased agitation in the setting of underlying dementia - pt's family notes increasing behavioral issues at home; they are unclear about what their options are in terms of care options (home health vs. short term stays vs. [facility], etc) - case management consulted to discuss discharge planning (pt's requested that both sons are also involved in care discussions) - s/p haldol 3mg IV in the ER which calmed pt slightly; haldol 5mg IV ordered PRN for agitation - Discussed with , she is open for placement for him, given worsening dementia (2) Leg ulcer, left: Plan: Chronic left lower extremity edema/ulcer - suspect secondary to venous stasis and inability of pt to elevate leg to control swelling - left LE US pending to r/o DVT - blood cx pending - upon admission, pt's leg wound does not appear infected (in addition to no leukocytosis, neg procal); will defer ABX on admissio (3) Hypothyroidism: Plan: lab done 05/23 shows t4 0.55, TSH 13.22 will start synthroid 75mcg daily (4) Ambulatory dysfunction: (5) Agitation: (6) Left leg swelling: Plan I spoke to the , she is open to placement for him, I think they are leaning towards home with hospice Admission and Anticipated Discharge Date Admission Date: August 26, 2024 Subjective patient seen and examined, he is confused, sitter by the bedside Review of Systems Review of Systems: unreliable due to dementia Physical Exam Physical Exam: The patient is awake, alert confused HEENT--PERRL, EOMI, mucous membranes and oropharynx mildly dry Neck--supple. No JVD. No bruits. Thyroid normal, trachea midline, no adenopathy. Heart--normal S1 and S2. No murmurs, rubs or gallops. Lungs--clear bilaterally, no respiratory distress, no accessory muscle use. Abdomen--normal bowel sounds and soft. Extremities--no cyanosis or clubbing. No edema. Dermatologic--left leg wound, cellulitis Neurologic--unable to evaluate due to confusion Rheumatologic--normal range of motion. Psychiatric--normal affect. Results & Data Results & Data Vital Signs (Past 12 Hours) Vital Signs Temp Pulse Resp BP Pulse Ox O2 Del Method 08/28/24 07:31 97.9 F 89 18 177/88 H 96 Room Air PG Care Time/CCT Total # of Minutes Spent Total Time Spent with Patient: Total time spent is greater than 50% in coordination of care (as documented) at patient's floor/unit and/or counseling patient: Coding Level of Care Code 67831 SUB INP/OBS CARE 2/35MIN Diagnoses Dementia F03.90 Leg ulcer, left L97.929 Hypothyroidism E03.9 Ambulatory dysfunction R26.2 Agitation R45.1 Left leg swelling M79.89 Time Spent (min) 35
[2024-08-28] MEDS: LEVOTHYROXINE SODIUM 75 MCG TABLET PO SCH (12:04)
[2024-08-28] MEDS: ATROPINE SULFATE 1% OP SOLN 5 ML BTL SL PRN (22:14)
[2024-08-29 07:49] VITALS: BP 158/79; PULSE 87; RESP 18; TEMP 98.6; O2SAT 94
--- NOTE | 2024-08-29 11:31 | Discharge Summary ---
Date of Service August 29, 2024 Admission HPI Per Admitting Provider Pt is a 78 yo male with PMH of dementia and chronic bilateral LE w/ left lower leg ulcer presenting to the ER d/t increasing agitation at home. Pt's and son at bedside and providing all history. Family notes that pt has become increasingly resistant to care over the past many months including refusing doctors appointments, doctor exams, and medications at home. His behaviors at home have become somewhat disrupting including frequent spitting. He will not comply with elevation of his legs to help with his LE edema. Family is concerned that his left leg may be infected. They state he appears to be in pain in his leg but will refuse to take medication for it. In the ER, pt was given haldol 3 mg IV and NS 500cc. Admission Exam (Per Admitting) Constitutional The patient is awake, alert and confused HEENT--PERRL, EOMI, mucous membranes and oropharynx mildly dry Neck--supple. No JVD. No bruits. Thyroid normal, trachea midline, no adenopathy. Heart--normal S1 and S2. No murmurs, rubs or gallops. Lungs--clear bilaterally, no respiratory distress, no accessory muscle use. Abdomen--normal bowel sounds and soft. Extremities--no cyanosis or clubbing. No edema. Dermatologic--normal skin turgor, normal color, no abnormal lymph nodes, no rash. Neurologic--confused Rheumatologic--normal range of motion. Psychiatric--normal affect. Discharge Data Consultations 08/26/24 20:46 ED Decision to Admit Stat Hospital Course (1) Dementia: Pt is a 78 yo male with PMH of dementia and chronic bilateral LE w/ left lower leg ulcer presenting to the ER d/t increasing agitation at home. Increased agitation in the setting of underlying dementia - pt's family notes increasing behavioral issues at home; they are unclear about what their options are in terms of care options (home health vs. short term stays vs. [facility], etc) - case management consulted to discuss discharge planning (pt's requested that both sons are also involved in care discussions) - s/p haldol 3mg IV in the ER which calmed pt slightly; haldol 5mg IV ordered PRN for agitation - Discussed with , she is open for placement for him, given worsening dementia (2) Leg ulcer, left: Chronic left lower extremity edema/ulcer - suspect secondary to venous stasis and inability of pt to elevate leg to control swelling - left LE US pending to r/o DVT - blood cx pending - upon admission, pt's leg wound does not appear infected (in addition to no leukocytosis, neg procal); will defer ABX on admissio (3) Hypothyroidism: lab done 05/23 shows t4 0.55, TSH 13.22 will start synthroid 75mcg daily (4) Ambulatory dysfunction: (5) Agitation: (6) Left leg swelling: Plan I spoke to the , she is open to placement for him, I think they are leaning towards home with hospice Coding Level of Care Code 07559 INP/OBS DISCH >30 MIN Diagnoses Dementia F03.90 Leg ulcer, left L97.929 Hypothyroidism E03.9 Ambulatory dysfunction R26.2 Agitation R45.1 Left leg swelling M79.89 Time Spent (min) 35
== END 2024-08-29 12:37 | disposition hospice, home (50) | DRG 884 ==
LOC: ED 15:32 → EDINP 21:39 → SUATTDRO 21:39 → 3E 22:14